=== PATIENT | female | born 1960 | race African-American/Black ===

== ENCOUNTER 2021-02-23 13:03 | Inpatient (IN) | payer MEDICARE, SELFPAY ==
[2021-02-23] MEDS ORDERED: Diltiazem 125 MG/25 ML ONE (13:27)
[2021-02-23 14:05] LABS: Band 8 % (5-11); Hemoglobin 12.5 g/dL (12.0-16.0); Lymphocytes 8 % (21-51); MDiff Complete? YES; Macrocytosis SLIGHT = 6-15 cells (100X) (0-5/hpf); Mean Corpuscular Hemoglobin 34.3 pg (27.0-31.0); Mean Platelet Volume 7.9 fL (7.4-10.4); Monocytes 7 % (0-10); Neutrophil 74 % (42-75); Nucleated RBC 11 % (0); Platelet Count 165 thou/uL (130-400); Platelet Morphology Comment Appears Adequate; RBC Distribution Width 14.5 % (11.5-14.5); Reactive Lymphocytes 3 % (0-10); Red Blood Cell (RBC) Count 3.65 mill/uL (4.20-5.40); White Blood Cell (WBC) Count 14.5 thou/uL (4.8-10.8)
[2021-02-23 14:09] LABS: ALT (SGPT) 1195 U/L (8-55); AST (SGOT) 685 U/L (5-34); Albumin 3.5 g/dL (3.4-4.8); Alkaline Phosphatase 524 U/L (40-110); Anion Gap 21 mmol/L (10-20); BUN (Urea Nitrogen) 91 mg/dL (9.8-20.1); Bilirubin, Total 10.7 mg/dL (0.2-1.2); Calc. Creatinine Clearance 0 mL/min (70-130); Carbon Dioxide 21 mmol/L (23-31); Chloride 100 mmol/L (98-107); Globulin 3.4 g/dL (2.4-3.5); Glucose 178 mg/dL (80-115); Magnesium 2.8 mg/dL (1.6-2.6); Potassium 4.8 mmol/L (3.5-5.1); Protein, Total 6.9 g/dL (5.8-8.1); Sodium 137 mmol/L (136-145)
[2021-02-23 14:33] LABS: CKMB 8.9 ng/mL (0-6.6)
[2021-02-23] MEDS ORDERED: Enoxaparin Sodium 100 MG/ML SYRINGE ONE (15:56)
[2021-02-23] MEDS ORDERED: Digoxin 0.5 MG/2 ML AMP ONE (15:56)
[2021-02-23] MEDS ORDERED: Lorazepam 2 MG/ML VIAL SLOW IVP PRN (18:05)
[2021-02-23] MEDS ORDERED: Ondansetron ODT 4 MG TAB PO PRN ×2 (18:14→19:59)
[2021-02-23] MEDS ORDERED: Diltiazem 125 MG in Sodium Chloride 0.9% 100 ML IVPB SCH (18:15)
[2021-02-23 18:23] LABS: Bacteria/HPF 4+ HPF (None Seen); Bilirubin Negative (Negative); Blood, Urine 1+ (Negative); Clarity Turbid (Clear); Glucose, Urine (Dipstick) Normal (Negative); Ketone, Urine Negative (Negative); Leukocyte 25 Leu/uL (Negative); Nitrite Negative (Negative); Protein, Urine (Dipstick) 30 mg/dL (Neg-Trace); RBC/HPF 0-3 HPF (0-3); Specific Gravity, Urine 1.016 (1.002-1.036)
[2021-02-23 18:40] LABS: Hemoglobin 11.9 g/dL (12.0-16.0); Platelet Count 152 thou/uL (130-400)
[2021-02-23 18:40] LABS: Amphetamine Not Detected (NotDetected); Barbiturates Screen Not Detected (NotDetected); Benzodiazepine Screen Not Detected (NotDetected); Cocaine Metabolite Screen Detected (NotDetected); Methadone Not Detected (NotDetected); Methamphetamine Not Detected (NotDetected); Opiate Screen Not Detected (NotDetected); Oxycodone Screen Not Detected (NotDetected); Phencyclidine (PCP) Not Detected (NotDetected); THC/Cannabinoid Screen Not Detected (NotDetected); Tricyclic Screen Not Detected (NotDetected)
[2021-02-23 18:50] LABS: Hemoglobin A1c 6.5 % (4.0-6.0)
[2021-02-23 18:53] LABS: INR-International Normal Ratio 1.9; PTT 41.3 sec (22.9-36.1); Prothrombin Time 21.7 sec (12.0-14.7)
[2021-02-23 18:59] LABS: Troponin I 0.073 ng/mL (< 0.028)
[2021-02-23 19:00] LABS: Alcohol Less than 10 mg/dL (Less than 10); CK (CPK) 204 U/L (29-168); Cardiac Risk 4.4 (Less than 4.5); Cholesterol 141 mg/dl (< 200 Desired); HDL Cholesterol 32 mg/dL (>60 Neg Risk); LDL Cholesterol, Calculated 93 mg/dL; Triglycerides 79 mg/dL (Less than 150)
[2021-02-23 19:09] LABS: D-Dimer Test Greater than 20.00 *mcg/mL (0.27-0.43)
[2021-02-23 19:11] LABS: Creatinine, Urine 121.23 mg/dL (47-110)
[2021-02-23 19:14] LABS: Syphilis Antibody Nonreactive (Nonreactive); Syphilis Antibody Index 0.16 S/CO (<1.00 Non-Reactive)
[2021-02-23 19:17] LABS: HBCM Index 0.06 S/CO (0-0.79); HBSAg Index 0.39 S/CO (0-0.99); HIV (1/2) Antibody/Antigen Non-Reactive (NonReactive); HIV 1/2 INDEX 0.06 S/CO (<1.00); Hep A IgM AB Non-Reactive (NonReactive); Hep A IgM S/CO 0.52 S/CO (0-0.79); Hep B Surf Ag Non-Reactive S/CO (NonReactive); Hep C IgG Ab Non-Reactive (NonReactive); Hep C Index 0.08 S/CO (0-0.79); Hepatitis B Core IgM Abs Non-Reactive (NonReactive)
[2021-02-23] MEDS: Heparin 10,000 UNITS/ 10 ML VIAL SLOW IVP SCH (21:43)
[2021-02-23] MEDS: Heparin 25,000 units/D5W 500 ML IVPB SCH (21:44)
[2021-02-23 23:09] LABS: Acetaminophen Less than 6.0 mcg/mL (10.0-30.0)
[2021-02-24 04:15] LABS: ALT (SGPT) 987 U/L (8-55); AST (SGOT) 369 U/L (5-34); Albumin 3.4 g/dL (3.4-4.8); Alkaline Phosphatase 502 U/L (40-110); Anion Gap 20 mmol/L (10-20); BUN (Urea Nitrogen) 87 mg/dL (9.8-20.1); Bilirubin, Total 7.9 mg/dL (0.2-1.2); Calc. Creatinine Clearance 22 mL/min (70-130); Calcium 8.8 mg/dL (7.8-10.44); Carbon Dioxide 18 mmol/L (23-31); Chloride 106 mmol/L (98-107); Globulin 3.5 g/dL (2.4-3.5); Glucose 174 mg/dL (80-115); Potassium 4.3 mmol/L (3.5-5.1); Protein, Total 6.9 g/dL (5.8-8.1); Sodium 140 mmol/L (136-145)
[2021-02-24 04:59] LABS: Band 8 % (5-11); Hemoglobin 12.5 g/dL (12.0-16.0); Lymphocytes 9 % (21-51); MDiff Complete? YES; Mean Corpuscular HGB CONC 31.5 g/dL (32.0-36.0); Mean Corpuscular Hemoglobin 34.4 pg (27.0-31.0); Mean Platelet Volume 7.9 fL (7.4-10.4); Monocytes 3 % (0-10); Neutrophil 80 % (42-75); Nucleated RBC 1 % (0); Platelet Count 170 thou/uL (130-400); RBC Distribution Width 14.7 % (11.5-14.5); Red Blood Cell (RBC) Count 3.62 mill/uL (4.20-5.40); White Blood Cell (WBC) Count 15.3 thou/uL (4.8-10.8)
[2021-02-24] MEDS ORDERED: Diltiazem HCl SR 90 mg Capsule PO SCH (09:00)
[2021-02-24] MEDS ORDERED: methylPREDNISolone Sod Succ 40 MG VIAL IVP SCH (09:00)
[2021-02-24] MEDS ORDERED: FLU VACC QS2021-22(6MOS UP)/PF 60 MCG/0.5 ML SYRINGE IM ONE (09:00)
[2021-02-24] MEDS: methylPREDNISolone Sod Succ 40 MG VIAL IVP SCH (10:53)
[2021-02-24] MEDS ORDERED: Amlodipine 5 MG TAB PO SCH (17:00)
[2021-02-25] MEDS: Heparin 25,000 units/D5W 500 ML IVPB SCH (01:03)
[2021-02-25 05:12] LABS: ALT (SGPT) 758 U/L (8-55); AST (SGOT) 207 U/L (5-34); Albumin 3.3 g/dL (3.4-4.8); Alkaline Phosphatase 468 U/L (40-110); Anion Gap 16 mmol/L (10-20); BUN (Urea Nitrogen) 59 mg/dL (9.8-20.1); Bilirubin, Total 5.2 mg/dL (0.2-1.2); Calc. Creatinine Clearance 35 mL/min (70-130); Calcium 8.8 mg/dL (7.8-10.44); Carbon Dioxide 22 mmol/L (23-31); Chloride 103 mmol/L (98-107); Globulin 3.4 g/dL (2.4-3.5); Glucose 296 mg/dL (80-115); Potassium 3.7 mmol/L (3.5-5.1); Protein, Total 6.7 g/dL (5.8-8.1); Sodium 137 mmol/L (136-145)
[2021-02-25] MEDS: Heparin 10,000 UNITS/ 10 ML VIAL SLOW IVP SCH (06:06)
[2021-02-25 06:51] LABS: Band 4 % (5-11); Hemoglobin 12.1 g/dL (12.0-16.0); Lymphocytes 4 % (21-51); MDiff Complete? YES; Macrocytosis SLIGHT = 6-15 cells (100X) (0-5/hpf); Mean Corpuscular HGB CONC 32.6 g/dL (32.0-36.0); Mean Corpuscular Hemoglobin 35.3 pg (27.0-31.0); Mean Platelet Volume 7.5 fL (7.4-10.4); Monocytes 4 % (0-10); Neutrophil 88 % (42-75); Nucleated RBC 3 % (0); Platelet Count 153 thou/uL (130-400); RBC Distribution Width 14.9 % (11.5-14.5); Red Blood Cell (RBC) Count 3.42 mill/uL (4.20-5.40); White Blood Cell (WBC) Count 12.6 thou/uL (4.8-10.8)
[2021-02-25] MEDS ORDERED: Dextrose 50% Abboject 50 ML SYRINGE SLOW IVP PRN (09:13)
[2021-02-25] MEDS: Amlodipine 5 MG TAB PO SCH (09:29)
[2021-02-25] MEDS: methylPREDNISolone Sod Succ 40 MG VIAL IVP SCH (09:29)
[2021-02-25] MEDS ORDERED: Apixaban 5 MG TAB PO SCH ×2 (10:45→11:02)
[2021-02-25] MEDS: cefTRIAXone\\ROCEPHIN 2 GM in Sodium Chloride 0.9% 100 ML IVPB SCH (11:53)
[2021-02-25] MEDS: HumaLOG 300 UNITS/3 ML VIAL SC PRN ×3 (12:28→20:59)
[2021-02-25 12:43] LABS: PTT Greater than 250.0 sec (22.9-36.1)
[2021-02-25 16:35] LABS: INR-International Normal Ratio 2.1; Prothrombin Time 23.5 sec (12.0-14.7)
[2021-02-25 16:36] LABS: PTT 79.4 sec (22.9-36.1)
[2021-02-25 17:24] LABS: SARS-CoV-2 PCR by NAA Not Detected (NotDetected)
[2021-02-25 18:16] LABS: Hemoglobin 11.9 g/dL (12.0-16.0); Platelet Count 173 thou/uL (130-400)
[2021-02-26 05:30] LABS: #Lymphocytes 1.1 thou/uL (1.20-3.40); #Monocytes 0.7 thou/uL (0.11-0.59); #Neutrophils 11.5 thou/uL (1.40-6.50); %Basophils 0.2 % (0.0-1.0); %Eosinophils 0.2 % (0.0-10.0); %Lymphocytes 7.9 % (21.0-51.0); %Monocytes 5.1 % (0.0-10.0); %Neutrophils 86.6 % (42.0-75.0); Hemoglobin 11.5 g/dL (12.0-16.0); MDiff Complete? YES; Macrocytosis SLIGHT = 6-15 cells (100X) (0-5/hpf); Mean Corpuscular Hemoglobin 35.1 pg (27.0-31.0); Mean Platelet Volume 7.3 fL (7.4-10.4); Platelet Count 177 thou/uL (130-400); RBC Distribution Width 15.1 % (11.5-14.5); Red Blood Cell (RBC) Count 3.27 mill/uL (4.20-5.40); Target Cells SLIGHT = 2-5 cells (100X) (0-1/hpf); White Blood Cell (WBC) Count 13.3 thou/uL (4.8-10.8)
[2021-02-26 05:50] LABS: ALT (SGPT) 602 U/L (8-55); AST (SGOT) 150 U/L (5-34); Albumin 3.2 g/dL (3.4-4.8); Alkaline Phosphatase 393 U/L (40-110); Anion Gap 12 mmol/L (10-20); BUN (Urea Nitrogen) 50 mg/dL (9.8-20.1); Bilirubin, Total 3.8 mg/dL (0.2-1.2); Calc. Creatinine Clearance 47 mL/min (70-130); Calcium 8.9 mg/dL (7.8-10.44); Carbon Dioxide 26 mmol/L (23-31); Chloride 105 mmol/L (98-107); Globulin 3.2 g/dL (2.4-3.5); Glucose 252 mg/dL (80-115); Potassium 4.1 mmol/L (3.5-5.1); Protein, Total 6.4 g/dL (5.8-8.1); Sodium 139 mmol/L (136-145)
[2021-02-26] MEDS: HumaLOG 300 UNITS/3 ML VIAL SC PRN ×2 (06:11→10:47)
[2021-02-26] MEDS ORDERED: Metoprolol Tartrate 5 MG/5 ML VIAL IVP SCH (06:15)
[2021-02-26] MEDS ORDERED: Digoxin 0.5 MG/2 ML AMP SLOW IVP SCH ×3 (07:20→20:00)
[2021-02-26] MEDS: Loratadine 10 MG TAB PO SCH (08:31)
[2021-02-26] MEDS: Apixaban 5 MG TAB PO SCH ×2 (08:31→20:49)
[2021-02-26] MEDS: methylPREDNISolone Sod Succ 40 MG VIAL IVP SCH (08:31)
[2021-02-26] MEDS: Amlodipine 5 MG TAB PO SCH (08:31)
[2021-02-26] MEDS: Fluticasone Propionate Nasal Spray 16 gm Bottle NASAL SCH (08:32)
[2021-02-26] MEDS: Lantus 1000 UNITS/10 ML VIAL SC SCH (08:32)
[2021-02-26] MEDS ORDERED: Apixaban 5 MG TAB PO SCH (09:00)
[2021-02-26] MEDS: cefTRIAXone\\ROCEPHIN 2 GM in Sodium Chloride 0.9% 100 ML IVPB SCH (10:40)
[2021-02-26] MEDS ORDERED: Senokot 8.6 MG TAB PO PRN (11:09)
[2021-02-26] MEDS ORDERED: Polyethylene Glycol 3350 17 GM Packet PO SCH (11:30)
[2021-02-26] MEDS ORDERED: Diltiazem 125 MG in Sodium Chloride 0.9% 100 ML IVPB SCH (22:30)
[2021-02-27 05:11] LABS: #Lymphocytes 0.9 thou/uL (1.20-3.40); #Monocytes 0.8 thou/uL (0.11-0.59); %Basophils 0.1 % (0.0-1.0); %Eosinophils 0.1 % (0.0-10.0); %Lymphocytes 7.2 % (21.0-51.0); %Monocytes 6.2 % (0.0-10.0); %Neutrophils 86.5 % (42.0-75.0); Hemoglobin 12.3 g/dL (12.0-16.0); Mean Corpuscular Hemoglobin 35.5 pg (27.0-31.0); Mean Platelet Volume 7.3 fL (7.4-10.4); Platelet Count 187 thou/uL (130-400); RBC Distribution Width 15.1 % (11.5-14.5); Red Blood Cell (RBC) Count 3.45 mill/uL (4.20-5.40); White Blood Cell (WBC) Count 12.7 thou/uL (4.8-10.8)
[2021-02-27 05:27] LABS: ALT (SGPT) 500 U/L (8-55); AST (SGOT) 109 U/L (5-34); Albumin 3.4 g/dL (3.4-4.8); Alkaline Phosphatase 372 U/L (40-110); Anion Gap 12 mmol/L (10-20); BUN (Urea Nitrogen) 36 mg/dL (9.8-20.1); Bilirubin, Total 3.2 mg/dL (0.2-1.2); Calc. Creatinine Clearance 55 mL/min (70-130); Carbon Dioxide 30 mmol/L (23-31); Chloride 101 mmol/L (98-107); Globulin 3.3 g/dL (2.4-3.5); Glucose 273 mg/dL (80-115); Potassium 4.2 mmol/L (3.5-5.1); Protein, Total 6.7 g/dL (5.8-8.1); Sodium 139 mmol/L (136-145)
[2021-02-27] MEDS: HumaLOG 300 UNITS/3 ML VIAL SC PRN ×4 (06:23→20:48)
[2021-02-27] MEDS ORDERED: Polyethylene Glycol 3350 17 GM Packet PO SCH (09:00)
[2021-02-27] MEDS: Fluticasone Propionate Nasal Spray 16 gm Bottle NASAL SCH (09:06)
[2021-02-27] MEDS: methylPREDNISolone Sod Succ 40 MG VIAL IVP SCH (09:06)
[2021-02-27] MEDS: Loratadine 10 MG TAB PO SCH (09:08)
[2021-02-27] MEDS: Amlodipine 5 MG TAB PO SCH (09:08)
[2021-02-27] MEDS: Apixaban 5 MG TAB PO SCH ×2 (09:08→20:09)
[2021-02-27] MEDS: Thiamine 100 MG TAB PO SCH (09:08)
[2021-02-27] MEDS: Lantus 1000 UNITS/10 ML VIAL SC SCH (09:13)
[2021-02-27] MEDS ORDERED: Lantus 1000 UNITS/10 ML VIAL SC SCH (09:45)
[2021-02-27] MEDS ORDERED: Carvedilol 6.25 MG TAB PO SCH (10:00)
[2021-02-27] MEDS: cefTRIAXone\\ROCEPHIN 2 GM in Sodium Chloride 0.9% 100 ML IVPB SCH (10:39)
[2021-02-27] MEDS: Carvedilol 6.25 MG TAB PO SCH (16:42)
[2021-02-27] MEDS: Polyethylene Glycol 3350 17 GM Packet PO SCH (20:15)
[2021-02-28] MEDS: Diltiazem 125 MG in Sodium Chloride 0.9% 100 ML IVPB SCH ×2 (01:40→21:08)
[2021-02-28 05:19] LABS: #Lymphocytes 0.9 thou/uL (1.20-3.40); #Monocytes 0.8 thou/uL (0.11-0.59); #Neutrophils 11.9 thou/uL (1.40-6.50); %Basophils 0.1 % (0.0-1.0); %Eosinophils 0.1 % (0.0-10.0); %Lymphocytes 6.8 % (21.0-51.0); %Monocytes 5.8 % (0.0-10.0); %Neutrophils 87.3 % (42.0-75.0); Hemoglobin 12.6 g/dL (12.0-16.0); Mean Corpuscular HGB CONC 32.2 g/dL (32.0-36.0); Mean Corpuscular Hemoglobin 35.5 pg (27.0-31.0); Mean Platelet Volume 7.8 fL (7.4-10.4); Platelet Count 186 thou/uL (130-400); RBC Distribution Width 14.5 % (11.5-14.5); Red Blood Cell (RBC) Count 3.55 mill/uL (4.20-5.40); White Blood Cell (WBC) Count 13.7 thou/uL (4.8-10.8)
[2021-02-28] MEDS: HumaLOG 300 UNITS/3 ML VIAL SC PRN ×4 (06:12→21:07)
[2021-02-28] MEDS: hydrALAZINE 20 MG/ML VIAL SLOW IVP PRN ×2 (06:53→20:08)
[2021-02-28] MEDS ORDERED: Lantus 1000 UNITS/10 ML VIAL SC SCH (09:00)
[2021-02-28] MEDS: Loratadine 10 MG TAB PO SCH (09:00)
[2021-02-28] MEDS: Apixaban 5 MG TAB PO SCH ×2 (09:00→20:07)
[2021-02-28] MEDS: Thiamine 100 MG TAB PO SCH (09:00)
[2021-02-28] MEDS: Amlodipine 5 MG TAB PO SCH (09:00)
[2021-02-28] MEDS: Fluticasone Propionate Nasal Spray 16 gm Bottle NASAL SCH ×2 (09:01→09:28)
[2021-02-28] MEDS: Polyethylene Glycol 3350 17 GM Packet PO SCH ×2 (09:04→23:20)
[2021-02-28] MEDS: methylPREDNISolone Sod Succ 40 MG VIAL IVP SCH (09:04)
[2021-02-28] MEDS ORDERED: Carvedilol 6.25 MG TAB PO SCH ×3 (09:09→17:00)
[2021-02-28] MEDS: Lantus 1000 UNITS/10 ML VIAL SC SCH (09:18)
[2021-02-28] MEDS: Carvedilol 6.25 MG TAB PO SCH (09:32)
[2021-02-28] MEDS ORDERED: Carvedilol 25 MG TAB PO SCH (10:00)
[2021-02-28 15:21] LABS: ALT (SGPT) 354 U/L (8-55); AST (SGOT) 64 U/L (5-34); Albumin 3.2 g/dL (3.4-4.8); Alkaline Phosphatase 321 U/L (40-110); Anion Gap 11 mmol/L (10-20); BUN (Urea Nitrogen) 30 mg/dL (9.8-20.1); Bilirubin, Total 2.2 mg/dL (0.2-1.2); Calc. Creatinine Clearance 66 mL/min (70-130); Carbon Dioxide 31 mmol/L (23-31); Chloride 99 mmol/L (98-107); Globulin 3.3 g/dL (2.4-3.5); Glucose 410 mg/dL (80-115); Potassium 4.5 mmol/L (3.5-5.1); Protein, Total 6.5 g/dL (5.8-8.1); Sodium 136 mmol/L (136-145)
[2021-02-28] MEDS: Lidocaine 5% Patch TD SCH (17:10)
[2021-02-28] MEDS: Metoprolol Tartrate 50 MG TAB PO SCH (20:07)
[2021-02-28] MEDS ORDERED: Transdermal Patch Removal TOP SCH (21:00)
[2021-02-28] MEDS ORDERED: Lidocaine 5% Patch TD SCH (21:00)
[2021-03-01 05:07] LABS: #Lymphocytes 0.9 thou/uL (1.20-3.40); #Monocytes 0.6 thou/uL (0.11-0.59); #Neutrophils 11.6 thou/uL (1.40-6.50); %Eosinophils 0.1 % (0.0-10.0); %Lymphocytes 6.6 % (21.0-51.0); %Monocytes 4.6 % (0.0-10.0); %Neutrophils 88.7 % (42.0-75.0); Hemoglobin 13.1 g/dL (12.0-16.0); Mean Corpuscular HGB CONC 31.5 g/dL (32.0-36.0); Mean Corpuscular Hemoglobin 34.9 pg (27.0-31.0); Mean Platelet Volume 7.6 fL (7.4-10.4); Platelet Count 215 thou/uL (130-400); RBC Distribution Width 14.5 % (11.5-14.5); Red Blood Cell (RBC) Count 3.75 mill/uL (4.20-5.40); White Blood Cell (WBC) Count 13.1 thou/uL (4.8-10.8)
[2021-03-01 05:44] LABS: ALT (SGPT) 296 U/L (8-55); AST (SGOT) 56 U/L (5-34); Alkaline Phosphatase 285 U/L (40-110); Anion Gap 13 mmol/L (10-20); BUN (Urea Nitrogen) 29 mg/dL (9.8-20.1); Calc. Creatinine Clearance 72 mL/min (70-130); Calcium 9.1 mg/dL (7.8-10.44); Carbon Dioxide 29 mmol/L (23-31); Chloride 98 mmol/L (98-107); Globulin 3.7 g/dL (2.4-3.5); Glucose 316 mg/dL (80-115); Potassium 4.7 mmol/L (3.5-5.1); Protein, Total 6.7 g/dL (5.8-8.1); Sodium 135 mmol/L (136-145)
[2021-03-01] MEDS: HumaLOG 300 UNITS/3 ML VIAL SC PRN ×4 (06:14→21:52)
[2021-03-01] MEDS: Transdermal Patch Removal TOP SCH (06:28)
[2021-03-01] MEDS ORDERED: hydrALAZINE 20 MG/ML VIAL SLOW IVP PRN (06:48)
[2021-03-01] MEDS ORDERED: methylPREDNISolone Sod Succ 40 MG VIAL IVP SCH (09:00)
[2021-03-01] MEDS ORDERED: Lidocaine 5% Patch TD SCH (09:00)
[2021-03-01] MEDS ORDERED: Lantus 1000 UNITS/10 ML VIAL SC SCH (09:00)
[2021-03-01] MEDS: Apixaban 5 MG TAB PO SCH ×2 (09:24→20:32)
[2021-03-01] MEDS: Thiamine 100 MG TAB PO SCH (09:24)
[2021-03-01] MEDS: Amlodipine 5 MG TAB PO SCH (09:25)
[2021-03-01] MEDS: Polyethylene Glycol 3350 17 GM Packet PO SCH ×3 (09:27→21:20)
[2021-03-01] MEDS: Metoprolol Tartrate 50 MG TAB PO SCH (09:27)
[2021-03-01] MEDS: Loratadine 10 MG TAB PO SCH (09:27)
[2021-03-01] MEDS: Fluticasone Propionate Nasal Spray 16 gm Bottle NASAL SCH (09:34)
[2021-03-01] MEDS: Lantus 1000 UNITS/10 ML VIAL SC SCH (09:41)
[2021-03-01] MEDS: Lidocaine 5% Patch TD SCH (17:04)
[2021-03-01] MEDS: Metoprolol Tartrate 100 MG TAB PO SCH (20:32)
[2021-03-01] MEDS ORDERED: Metoprolol Tartrate 50 MG TAB PO SCH (21:00)
[2021-03-01] MEDS ORDERED: Melatonin 3 MG TAB PO PRN (21:23)
[2021-03-01] MEDS: Diltiazem 125 MG in Sodium Chloride 0.9% 100 ML IVPB SCH (23:03)
[2021-03-02] MEDS: Transdermal Patch Removal TOP SCH (05:17)
[2021-03-02 05:20] LABS: #Eosinphils 0.1 thou/uL (0.0-0.7); #Lymphocytes 1.1 thou/uL (1.20-3.40); #Monocytes 0.8 thou/uL (0.11-0.59); #Neutrophils 10.7 thou/uL (1.40-6.50); %Eosinophils 0.8 % (0.0-10.0); %Lymphocytes 8.7 % (21.0-51.0); %Monocytes 6.2 % (0.0-10.0); %Neutrophils 84.3 % (42.0-75.0); Mean Corpuscular HGB CONC 31.6 g/dL (32.0-36.0); Mean Corpuscular Hemoglobin 35.1 pg (27.0-31.0); Mean Platelet Volume 7.5 fL (7.4-10.4); Platelet Count 232 thou/uL (130-400); RBC Distribution Width 14.4 % (11.5-14.5); White Blood Cell (WBC) Count 12.6 thou/uL (4.8-10.8)
[2021-03-02 05:41] LABS: ALT (SGPT) 219 U/L (8-55); AST (SGOT) 32 U/L (5-34); Alkaline Phosphatase 251 U/L (40-110); Anion Gap 10 mmol/L (10-20); BUN (Urea Nitrogen) 33 mg/dL (9.8-20.1); Bilirubin, Total 1.7 mg/dL (0.2-1.2); Calc. Creatinine Clearance 64 mL/min (70-130); Calcium 8.7 mg/dL (7.8-10.44); Carbon Dioxide 30 mmol/L (23-31); Chloride 101 mmol/L (98-107); Glucose 270 mg/dL (80-115); Potassium 3.6 mmol/L (3.5-5.1); Sodium 137 mmol/L (136-145)
[2021-03-02] MEDS: HumaLOG 300 UNITS/3 ML VIAL SC PRN ×4 (05:57→21:26)
[2021-03-02] MEDS ORDERED: Diltiazem 125 MG in Sodium Chloride 0.9% 100 ML IVPB SCH (07:45)
[2021-03-02] MEDS ORDERED: Lantus 1000 UNITS/10 ML VIAL SC SCH ×2 (09:00)
[2021-03-02] MEDS: Metoprolol Tartrate 100 MG TAB PO SCH (09:00)
[2021-03-02] MEDS: Thiamine 100 MG TAB PO SCH (09:00)
[2021-03-02] MEDS: Loratadine 10 MG TAB PO SCH (09:00)
[2021-03-02] MEDS: Amlodipine 5 MG TAB PO SCH (09:00)
[2021-03-02] MEDS: Polyethylene Glycol 3350 17 GM Packet PO SCH ×2 (09:00→21:13)
[2021-03-02] MEDS: Apixaban 5 MG TAB PO SCH ×2 (09:00→21:19)
[2021-03-02] MEDS: Fluticasone Propionate Nasal Spray 16 gm Bottle NASAL SCH (09:01)
[2021-03-02 17:08] LABS: INR-International Normal Ratio 1.5; Prothrombin Time 18.1 sec (12.0-14.7)
[2021-03-02] MEDS: Lidocaine 5% Patch TD SCH (17:28)
[2021-03-02] MEDS: Melatonin 3 MG TAB PO SCH (21:19)
[2021-03-03 04:58] LABS: #Eosinphils 0.1 thou/uL (0.0-0.7); #Lymphocytes 1.4 thou/uL (1.20-3.40); #Monocytes 0.8 thou/uL (0.11-0.59); #Neutrophils 11.8 thou/uL (1.40-6.50); %Basophils 0.3 % (0.0-1.0); %Eosinophils 0.9 % (0.0-10.0); %Lymphocytes 9.5 % (21.0-51.0); %Monocytes 5.8 % (0.0-10.0); %Neutrophils 83.5 % (42.0-75.0); Hemoglobin 13.6 g/dL (12.0-16.0); Mean Corpuscular HGB CONC 31.4 g/dL (32.0-36.0); Mean Corpuscular Hemoglobin 35.1 pg (27.0-31.0); Mean Platelet Volume 7.6 fL (7.4-10.4); Platelet Count 237 thou/uL (130-400); RBC Distribution Width 14.1 % (11.5-14.5); Red Blood Cell (RBC) Count 3.87 mill/uL (4.20-5.40); White Blood Cell (WBC) Count 14.1 thou/uL (4.8-10.8)
[2021-03-03 05:28] LABS: ALT (SGPT) 155 U/L (8-55); AST (SGOT) 28 U/L (5-34); Albumin 3.1 g/dL (3.4-4.8); Alkaline Phosphatase 246 U/L (40-110); Anion Gap 11 mmol/L (10-20); BUN (Urea Nitrogen) 27 mg/dL (9.8-20.1); Bilirubin, Total 1.7 mg/dL (0.2-1.2); Calc. Creatinine Clearance 72 mL/min (70-130); Calcium 8.8 mg/dL (7.8-10.44); Carbon Dioxide 29 mmol/L (23-31); Chloride 102 mmol/L (98-107); Globulin 3.1 g/dL (2.4-3.5); Glucose 194 mg/dL (80-115); Potassium 3.6 mmol/L (3.5-5.1); Protein, Total 6.2 g/dL (5.8-8.1); Sodium 138 mmol/L (136-145)
[2021-03-03] MEDS: Transdermal Patch Removal TOP SCH (06:16)
[2021-03-03] MEDS: HumaLOG 300 UNITS/3 ML VIAL SC PRN ×4 (06:16→21:49)
[2021-03-03] MEDS: Lantus 1000 UNITS/10 ML VIAL SC SCH (10:28)
[2021-03-03] MEDS: Apixaban 5 MG TAB PO SCH ×2 (10:30→21:50)
[2021-03-03] MEDS: Loratadine 10 MG TAB PO SCH (10:31)
[2021-03-03] MEDS: Thiamine 100 MG TAB PO SCH (10:31)
[2021-03-03] MEDS: Polyethylene Glycol 3350 17 GM Packet PO SCH ×2 (10:32→21:51)
[2021-03-03] MEDS: Fluticasone Propionate Nasal Spray 16 gm Bottle NASAL SCH (10:33)
[2021-03-03] MEDS: Amlodipine 10 MG TAB PO SCH (10:35)
[2021-03-03] MEDS: Lidocaine 5% Patch TD SCH (16:58)
[2021-03-03] MEDS ORDERED: Diltiazem HCl SR 60 mg Capsule PO SCH (17:15)
[2021-03-03] MEDS: Amlodipine 5 MG TAB PO SCH (19:19)
[2021-03-03] MEDS: Melatonin 3 MG TAB PO SCH (21:50)
[2021-03-04 04:36] LABS: #Basophils 0.1 thou/uL (0.0-0.2); #Eosinphils 0.2 thou/uL (0.0-0.7); #Lymphocytes 1.9 thou/uL (1.20-3.40); #Monocytes 0.8 thou/uL (0.11-0.59); #Neutrophils 10.3 thou/uL (1.40-6.50); %Basophils 0.4 % (0.0-1.0); %Eosinophils 1.3 % (0.0-10.0); %Lymphocytes 14.5 % (21.0-51.0); %Monocytes 6.3 % (0.0-10.0); %Neutrophils 77.6 % (42.0-75.0); Hemoglobin 12.7 g/dL (12.0-16.0); Mean Corpuscular HGB CONC 31.1 g/dL (32.0-36.0); Mean Corpuscular Hemoglobin 34.5 pg (27.0-31.0); Mean Platelet Volume 7.3 fL (7.4-10.4); Platelet Count 247 thou/uL (130-400); RBC Distribution Width 13.8 % (11.5-14.5); Red Blood Cell (RBC) Count 3.69 mill/uL (4.20-5.40); White Blood Cell (WBC) Count 13.3 thou/uL (4.8-10.8)
[2021-03-04 04:59] LABS: ALT (SGPT) 130 U/L (8-55); AST (SGOT) 32 U/L (5-34); Albumin 2.9 g/dL (3.4-4.8); Alkaline Phosphatase 216 U/L (40-110); Anion Gap 8 mmol/L (10-20); BUN (Urea Nitrogen) 20 mg/dL (9.8-20.1); Bilirubin, Total 1.5 mg/dL (0.2-1.2); Calc. Creatinine Clearance 87 mL/min (70-130); Calcium 8.5 mg/dL (7.8-10.44); Carbon Dioxide 31 mmol/L (23-31); Chloride 102 mmol/L (98-107); Glucose 126 mg/dL (80-115); Potassium 3.7 mmol/L (3.5-5.1); Protein, Total 5.9 g/dL (5.8-8.1); Sodium 137 mmol/L (136-145)
[2021-03-04] MEDS: Transdermal Patch Removal TOP SCH (05:33)
[2021-03-04] MEDS ORDERED: Diltiazem HCl CD 300 mg Capsule PO SCH (09:00)
[2021-03-04] MEDS: Polyethylene Glycol 3350 17 GM Packet PO SCH ×2 (09:53→21:10)
[2021-03-04] MEDS: Amlodipine 10 MG TAB PO SCH (09:54)
[2021-03-04] MEDS: Apixaban 5 MG TAB PO SCH (09:54)
[2021-03-04] MEDS: Thiamine 100 MG TAB PO SCH (09:54)
[2021-03-04] MEDS: Fluticasone Propionate Nasal Spray 16 gm Bottle NASAL SCH (09:55)
[2021-03-04] MEDS: Loratadine 10 MG TAB PO SCH (09:55)
[2021-03-04] MEDS: Lantus 1000 UNITS/10 ML VIAL SC SCH (09:58)
[2021-03-04] MEDS: Lidocaine 5% Patch TD SCH (16:58)
[2021-03-04] MEDS ORDERED: Carvedilol 6.25 MG TAB PO SCH ×3 (17:00→21:15)
[2021-03-04] MEDS: Melatonin 3 MG TAB PO SCH (21:09)
[2021-03-04] MEDS: HumaLOG 300 UNITS/3 ML VIAL SC PRN (21:10)
[2021-03-05 04:46] LABS: #Basophils 0.1 thou/uL (0.0-0.2); #Eosinphils 0.1 thou/uL (0.0-0.7); #Lymphocytes 1.3 thou/uL (1.20-3.40); #Monocytes 0.9 thou/uL (0.11-0.59); #Neutrophils 9.7 thou/uL (1.40-6.50); %Basophils 0.7 % (0.0-1.0); %Eosinophils 1.2 % (0.0-10.0); %Lymphocytes 10.7 % (21.0-51.0); %Monocytes 7.5 % (0.0-10.0); Hemoglobin 12.2 g/dL (12.0-16.0); Mean Corpuscular HGB CONC 31.3 g/dL (32.0-36.0); Mean Corpuscular Hemoglobin 34.4 pg (27.0-31.0); Mean Platelet Volume 7.2 fL (7.4-10.4); Platelet Count 262 thou/uL (130-400); Red Blood Cell (RBC) Count 3.54 mill/uL (4.20-5.40); White Blood Cell (WBC) Count 12.2 thou/uL (4.8-10.8)
[2021-03-05 05:03] LABS: ALT (SGPT) 106 U/L (8-55); AST (SGOT) 21 U/L (5-34); Alkaline Phosphatase 210 U/L (40-110); Anion Gap 12 mmol/L (10-20); BUN (Urea Nitrogen) 29 mg/dL (9.8-20.1); Bilirubin, Total 1.3 mg/dL (0.2-1.2); Calc. Creatinine Clearance 56 mL/min (70-130); Calcium 8.6 mg/dL (7.8-10.44); Carbon Dioxide 27 mmol/L (23-31); Chloride 103 mmol/L (98-107); Glucose 201 mg/dL (80-115); Potassium 3.9 mmol/L (3.5-5.1); Sodium 138 mmol/L (136-145)
[2021-03-05] MEDS: Transdermal Patch Removal TOP SCH (05:39)
[2021-03-05] MEDS: HumaLOG 300 UNITS/3 ML VIAL SC PRN ×3 (05:43→16:59)
[2021-03-05] MEDS: Loratadine 10 MG TAB PO SCH (08:39)
[2021-03-05] MEDS: Lantus 1000 UNITS/10 ML VIAL SC SCH (08:39)
[2021-03-05] MEDS: Amlodipine 10 MG TAB PO SCH (08:39)
[2021-03-05] MEDS: Carvedilol 6.25 MG TAB PO SCH ×2 (08:39→16:59)
[2021-03-05] MEDS: Thiamine 100 MG TAB PO SCH (08:39)
[2021-03-05] MEDS: Fluticasone Propionate Nasal Spray 16 gm Bottle NASAL SCH (08:40)
[2021-03-05] MEDS: Polyethylene Glycol 3350 17 GM Packet PO SCH (08:43)
[2021-03-05] MEDS ORDERED: Diltiazem HCl CD 300 mg Capsule PO SCH (09:00)
[2021-03-05] MEDS ORDERED: Apixaban 5 MG TAB PO SCH (09:00)
[2021-03-05 12:19] LABS: SARS-CoV-2 PCR by NAA Not Detected (NotDetected)
[2021-03-05 14:33] VITALS: BMI 34.2
[2021-03-05 15:39] VITALS: TEMP 98.3
[2021-03-05] MEDS: Lidocaine 5% Patch TD SCH (16:59)
[2021-03-05 17:39] VITALS: BP 136/64
[2021-03-06 12:40] LABS: ANA Symphony (Qualitative) POSITIVE (Negative); ANA Symphony (Quantitative) 9.4 Ratio (< 0.7 Negative); CENP IgG Antibody Less than 0.4 EliAU/mL (<7 Negative); Jo-1 IgG Antibody Less than 0.3 EliAU/mL (<7 Negative); RNP70 IgG Antibody Less than 0.3 EliAU/mL (<7 Negative); Scleroderma-70 IgG Antibody 1.1 EliAU/mL (<7 Negative); Smith D IgG Antibody 2.6 EliAU/mL (<7 Negative); dsDNA IgG Antibody 1.2 IU/mL (<10 Negative)
[2021-03-06 12:41] LABS: SSB/La IgG Antibody Less than 0.3 EliAU/mL (<7 Negative)
== END 2021-03-05 18:40 | disposition home or self-care (01) | DRG 441 ==
LOC: ERS 13:03 → ERHOLD 16:14 → IMCU/EMU 20:10 → 2NO 02-24 17:15
PROVIDERS: ADMIT Student in an Organized Health Care Education/Training Program; ATTEND Student in an Organized Health Care Education/Training Program
DX: K72.00 Acute and subacute hepatic failure without coma (principal); Z20.822 Contact with and (suspected) exposure to COVID-19; N17.0 Acute kidney failure with tubular necrosis; I21.4 Non-ST elevation (NSTEMI) myocardial infarction; J96.01 Acute respiratory failure with hypoxia; I26.99 Other pulmonary embolism without acute cor pulmonale; I48.19 Other persistent atrial fibrillation; I82.441 Acute embolism and thrombosis of right tibial vein; I50.30 Unspecified diastolic (congestive) heart failure; E78.5 Hyperlipidemia, unspecified; F32.A Depression, unspecified; F17.210 Nicotine dependence, cigarettes, uncomplicated; H54.40 Blindness, one eye, unspecified eye; M21.379 Foot drop, unspecified foot; K70.10 Alcoholic hepatitis without ascites; F14.10 Cocaine abuse, uncomplicated; D64.9 Anemia, unspecified; I11.0 Hypertensive heart disease with heart failure; R74.01 Elevation of levels of liver transaminase levels; I08.1 Rheumatic disorders of both mitral and tricuspid valves; E11.65 Type 2 diabetes mellitus with hyperglycemia; K76.1 Chronic passive congestion of liver; F10.10 Alcohol abuse, uncomplicated; E66.01 Morbid (severe) obesity due to excess calories; R32 Unspecified urinary incontinence; K59.00 Constipation, unspecified; Z68.34 Body mass index [BMI] 34.0-34.9, adult; Z28.21 Immunization not carried out because of patient refusal; Z90.89 Acquired absence of other organs
CPT/HCPCS: 36415; 36416; 71045; 74176; 76705; 80053; 80061; 80074; 80143; 80306; 80307; 81003; 81015; 82248; 82550; 82553; 82570; 82607; 82746; 83036; 83516; 83605; 83690; 83735; 83880; 84300; 84443; 84484; 85025; 85379; 85610; 85730; 86038; 86225; 86235; 86780; 87040; 87086; 87389; 93005; 93306; 93970; 96365; 96366; 96372; 96375; 96376; J0360; J0696; J1160; J1644; J1650; J1815; J2920; J3411; J3490; U0003; U0005

== ENCOUNTER 2021-03-12 07:52 | Inpatient (IN) | payer MEDICARE ==
[2021-03-12 08:41] LABS: Hemoglobin 11.3 g/dL (12.0-16.0); Mean Corpuscular HGB CONC 30.2 g/dL (32.0-36.0); Mean Corpuscular Hemoglobin 33.2 pg (27.0-31.0); Mean Platelet Volume 8.1 fL (7.4-10.4); Platelet Count 229 thou/uL (130-400); RBC Distribution Width 13.6 % (11.5-14.5); White Blood Cell (WBC) Count 8.5 thou/uL (4.8-10.8)
[2021-03-12 08:42] LABS: #Eosinphils 0.1 thou/uL (0.0-0.7); #Lymphocytes 1.6 thou/uL (1.20-3.40); #Monocytes 0.6 thou/uL (0.11-0.59); #Neutrophils 6.2 thou/uL (1.40-6.50); %Basophils 0.5 % (0.0-1.0); %Eosinophils 1.4 % (0.0-10.0); %Lymphocytes 18.2 % (21.0-51.0); %Monocytes 7.3 % (0.0-10.0); %Neutrophils 72.6 % (42.0-75.0)
[2021-03-12 09:00] LABS: ALT (SGPT) 46 U/L (8-55); AST (SGOT) 20 U/L (5-34); Albumin 3.4 g/dL (3.4-4.8); Alkaline Phosphatase 261 U/L (40-110); Anion Gap 14 mmol/L (10-20); BUN (Urea Nitrogen) 27 mg/dL (9.8-20.1); Bilirubin, Total 1.3 mg/dL (0.2-1.2); Calc. Creatinine Clearance 0 mL/min (70-130); Calcium 8.7 mg/dL (7.8-10.44); Carbon Dioxide 25 mmol/L (23-31); Chloride 105 mmol/L (98-107); Globulin 2.7 g/dL (2.4-3.5); Glucose 288 mg/dL (80-115); Potassium 4.7 mmol/L (3.5-5.1); Protein, Total 6.1 g/dL (5.8-8.1); Sodium 139 mmol/L (136-145)
[2021-03-12] MEDS ORDERED: Diltiazem 125 MG/25 ML ONE (09:09)
[2021-03-12 09:13] LABS: Acetaminophen Less than 6.0 mcg/mL (10.0-30.0); Alcohol Less than 10 mg/dL (Less than 10); Salicylate Less than 8.0 mg/dL (15.0-30.0)
[2021-03-12 09:28] LABS: MDiff Complete? YES; Macrocytosis SLIGHT = 6-15 cells (100X) (0-5/hpf); Polychromasia SLIGHT = 2-3 cells (100X) (0-2/hpf)
[2021-03-12] MEDS ORDERED: Metoprolol Tartrate 5 MG/5 ML VIAL ONE (09:47)
[2021-03-12 12:05] LABS: Troponin I 0.022 ng/mL (< 0.028)
[2021-03-12] MEDS ORDERED: Acetaminophen 325 MG TAB PO PRN (14:08)
[2021-03-12 14:48] LABS: Troponin I 0.029 ng/mL (< 0.028)
[2021-03-12] MEDS ORDERED: Furosemide 20 MG/2 ML VIAL SLOW IVP SCH (15:00)
[2021-03-12 15:21] LABS: Magnesium 2.2 mg/dL (1.6-2.6); Phosphorus 3.6 mg/dL (2.3-4.7)
[2021-03-12 15:41] LABS: Bilirubin Negative (Negative); Blood, Urine Negative (Negative); Clarity Clear (Clear); Glucose, Urine (Dipstick) 30 mg/dL (Negative); Ketone, Urine Negative (Negative); Leukocyte Negative Leu/uL (Negative); Nitrite Negative (Negative); Protein, Urine (Dipstick) 70 mg/dL (Neg-Trace); RBC/HPF 0-3 HPF (0-3); Specific Gravity, Urine 1.023 (1.002-1.036); Squamous Epithelial 0-3 HPF (0-3); Urobilinogen 6 mg/dL (Less than 2); WBC/HPF 0-3 HPF (0-3)
[2021-03-12 15:42] LABS: Bacteria/HPF Rare-Few HPF (None Seen)
[2021-03-12 15:47] LABS: Amphetamine Not Detected (NotDetected); Barbiturates Screen Not Detected (NotDetected); Benzodiazepine Screen Not Detected (NotDetected); Cocaine Metabolite Screen Detected (NotDetected); Methadone Not Detected (NotDetected); Methamphetamine Not Detected (NotDetected); Opiate Screen Not Detected (NotDetected); Oxycodone Screen Not Detected (NotDetected); Phencyclidine (PCP) Not Detected (NotDetected); THC/Cannabinoid Screen Not Detected (NotDetected); Tricyclic Screen Not Detected (NotDetected)
[2021-03-12] MEDS ORDERED: Carvedilol 6.25 MG TAB PO SCH (17:00)
[2021-03-12 18:21] VITALS: BMI 34.0
[2021-03-12] MEDS: Diltiazem 125 MG in Sodium Chloride 0.9% 100 ML IVPB SCH (19:09)
[2021-03-12] MEDS: Apixaban 5 MG TAB PO SCH (20:19)
[2021-03-12] MEDS: Melatonin 3 MG TAB PO SCH (20:19)
[2021-03-12] MEDS: Polyethylene Glycol 3350 17 GM Packet PO SCH (20:23)
[2021-03-13] MEDS: Diltiazem 125 MG in Sodium Chloride 0.9% 100 ML IVPB SCH ×2 (01:48→10:37)
[2021-03-13 04:48] LABS: #Basophils 0.1 thou/uL (0.0-0.2); #Eosinphils 0.2 thou/uL (0.0-0.7); #Lymphocytes 1.8 thou/uL (1.20-3.40); #Monocytes 0.5 thou/uL (0.11-0.59); #Neutrophils 4.8 thou/uL (1.40-6.50); %Basophils 1.3 % (0.0-1.0); %Eosinophils 2.1 % (0.0-10.0); %Lymphocytes 24.4 % (21.0-51.0); %Neutrophils 65.2 % (42.0-75.0); Hemoglobin 11.1 g/dL (12.0-16.0); Mean Corpuscular HGB CONC 30.3 g/dL (32.0-36.0); Platelet Count 197 thou/uL (130-400); RBC Distribution Width 13.8 % (11.5-14.5); Red Blood Cell (RBC) Count 3.37 mill/uL (4.20-5.40); White Blood Cell (WBC) Count 7.3 thou/uL (4.8-10.8)
[2021-03-13 05:17] LABS: ALT (SGPT) 40 U/L (8-55); AST (SGOT) 16 U/L (5-34); Albumin 3.3 g/dL (3.4-4.8); Alkaline Phosphatase 231 U/L (40-110); Anion Gap 12 mmol/L (10-20); BUN (Urea Nitrogen) 27 mg/dL (9.8-20.1); Bilirubin, Total 1.4 mg/dL (0.2-1.2); Calc. Creatinine Clearance 48 mL/min (70-130); Carbon Dioxide 24 mmol/L (23-31); Chloride 106 mmol/L (98-107); Glucose 213 mg/dL (80-115); Potassium 4.3 mmol/L (3.5-5.1); Protein, Total 6.3 g/dL (5.8-8.1); Sodium 138 mmol/L (136-145)
[2021-03-13] MEDS ORDERED: Carvedilol 6.25 MG TAB PO SCH (07:15)
[2021-03-13 08:01] LABS: SARS-CoV-2 PCR by NAA Not Detected (NotDetected)
[2021-03-13] MEDS: Loratadine 10 MG TAB PO SCH (08:43)
[2021-03-13] MEDS: Apixaban 5 MG TAB PO SCH ×2 (08:43→20:31)
[2021-03-13] MEDS: Thiamine 100 MG TAB PO SCH (08:43)
[2021-03-13] MEDS: Polyethylene Glycol 3350 17 GM Packet PO SCH ×2 (08:43→20:31)
[2021-03-13] MEDS ORDERED: FLU VACC QS2021-22(6MOS UP)/PF 60 MCG/0.5 ML SYRINGE IM ONE (09:00)
[2021-03-13] MEDS ORDERED: Amlodipine 10 MG TAB PO SCH (09:00)
[2021-03-13] MEDS: Fluticasone Propionate Nasal Spray 16 gm Bottle NASAL SCH (10:37)
[2021-03-13] MEDS ORDERED: Diltiazem 125 MG in Sodium Chloride 0.9% 100 ML IVPB SCH (12:34)
[2021-03-13] MEDS ORDERED: Diltiazem HCl CD 300 mg Capsule PO SCH (14:00)
[2021-03-13] MEDS: Carvedilol 6.25 MG TAB PO SCH (17:27)
[2021-03-13] MEDS: Melatonin 3 MG TAB PO SCH (20:31)
[2021-03-14 05:31] LABS: Anion Gap 14 mmol/L (10-20); BUN (Urea Nitrogen) 31 mg/dL (9.8-20.1); Calc. Creatinine Clearance 36 mL/min (70-130); Calcium 9.1 mg/dL (7.8-10.44); Carbon Dioxide 24 mmol/L (23-31); Chloride 104 mmol/L (98-107); Glucose 263 mg/dL (80-115); Potassium 4.5 mmol/L (3.5-5.1); Sodium 137 mmol/L (136-145)
[2021-03-14] MEDS: Carvedilol 6.25 MG TAB PO SCH (08:53)
[2021-03-14] MEDS: Thiamine 100 MG TAB PO SCH (08:58)
[2021-03-14] MEDS: Fluticasone Propionate Nasal Spray 16 gm Bottle NASAL SCH (08:58)
[2021-03-14] MEDS: Loratadine 10 MG TAB PO SCH (08:58)
[2021-03-14] MEDS: Apixaban 5 MG TAB PO SCH ×2 (08:58→22:58)
[2021-03-14] MEDS: Polyethylene Glycol 3350 17 GM Packet PO SCH ×2 (08:59→22:57)
[2021-03-14] MEDS ORDERED: Diltiazem HCl CD 300 mg Capsule PO SCH (09:00)
[2021-03-14] MEDS ORDERED: Furosemide 20 MG/2 ML VIAL SLOW IVP SCH (09:00)
[2021-03-14] MEDS ORDERED: Carvedilol 25 MG TAB PO SCH ×4 (14:00→22:45)
[2021-03-14] MEDS ORDERED: Lactated Ringer's 500 ML IV SCH (14:00)
[2021-03-14] MEDS ORDERED: Carvedilol 6.25 MG TAB PO SCH (21:00)
[2021-03-14] MEDS: Melatonin 3 MG TAB PO SCH (22:58)
[2021-03-15 05:59] LABS: Anion Gap 14 mmol/L (10-20); BUN (Urea Nitrogen) 31 mg/dL (9.8-20.1); Calc. Creatinine Clearance 33 mL/min (70-130); Calcium 9.1 mg/dL (7.8-10.44); Carbon Dioxide 26 mmol/L (23-31); Chloride 105 mmol/L (98-107); Glucose 255 mg/dL (80-115); Potassium 4.6 mmol/L (3.5-5.1); Sodium 140 mmol/L (136-145)
[2021-03-15] MEDS ORDERED: Dextrose 5% in Water 1,000 ML IV PRN (06:34)
[2021-03-15] MEDS ORDERED: Dextrose 50% Abboject 50 ML SYRINGE SLOW IVP PRN (06:34)
[2021-03-15] MEDS ORDERED: Carvedilol 25 MG TAB PO SCH ×3 (08:00)
[2021-03-15] MEDS: Carvedilol 25 MG TAB PO SCH ×2 (08:55→16:42)
[2021-03-15] MEDS: Fluticasone Propionate Nasal Spray 16 gm Bottle NASAL SCH (08:56)
[2021-03-15] MEDS: Loratadine 10 MG TAB PO SCH (08:56)
[2021-03-15] MEDS: Apixaban 5 MG TAB PO SCH ×2 (08:56→20:55)
[2021-03-15] MEDS: Polyethylene Glycol 3350 17 GM Packet PO SCH ×2 (08:57→20:55)
[2021-03-15] MEDS: Thiamine 100 MG TAB PO SCH (08:57)
[2021-03-15] MEDS: Lactated Ringer's 1,000 ML IV SCH ×2 (08:59→23:10)
[2021-03-15] MEDS: Melatonin 3 MG TAB PO SCH (20:54)
[2021-03-16 05:55] LABS: Anion Gap 12 mmol/L (10-20); BUN (Urea Nitrogen) 30 mg/dL (9.8-20.1); Calc. Creatinine Clearance 36 mL/min (70-130); Carbon Dioxide 26 mmol/L (23-31); Chloride 104 mmol/L (98-107); Glucose 236 mg/dL (80-115); Potassium 4.2 mmol/L (3.5-5.1); Sodium 138 mmol/L (136-145)
[2021-03-16] MEDS: HumaLOG 300 UNITS/3 ML VIAL SC PRN ×2 (06:25→14:41)
[2021-03-16] MEDS: Apixaban 5 MG TAB PO SCH ×2 (09:20→22:27)
[2021-03-16] MEDS: Carvedilol 25 MG TAB PO SCH ×2 (09:20→17:52)
[2021-03-16] MEDS: Loratadine 10 MG TAB PO SCH (09:20)
[2021-03-16] MEDS: Fluticasone Propionate Nasal Spray 16 gm Bottle NASAL SCH (09:20)
[2021-03-16] MEDS: Polyethylene Glycol 3350 17 GM Packet PO SCH ×2 (09:21→22:27)
[2021-03-16] MEDS: Thiamine 100 MG TAB PO SCH (09:21)
[2021-03-16] MEDS: Digoxin 0.5 MG/2 ML AMP SLOW IVP SCH ×2 (14:42→22:11)
[2021-03-16] MEDS: Lactated Ringer's 1,000 ML IV SCH ×2 (14:45→23:27)
[2021-03-16] MEDS: Melatonin 3 MG TAB PO SCH (22:27)
[2021-03-17] MEDS: HumaLOG 300 UNITS/3 ML VIAL SC PRN ×3 (00:11→12:29)
[2021-03-17] MEDS: Digoxin 0.5 MG/2 ML AMP SLOW IVP SCH (03:09)
[2021-03-17 05:33] LABS: Anion Gap 11 mmol/L (10-20); BUN (Urea Nitrogen) 25 mg/dL (9.8-20.1); Calc. Creatinine Clearance 42 mL/min (70-130); Calcium 8.7 mg/dL (7.8-10.44); Carbon Dioxide 26 mmol/L (23-31); Chloride 107 mmol/L (98-107); Glucose 154 mg/dL (80-115); Potassium 4.1 mmol/L (3.5-5.1); Sodium 140 mmol/L (136-145)
[2021-03-17] MEDS ORDERED: Digoxin 0.5 MG/2 ML AMP SLOW IVP SCH ×2 (08:00)
[2021-03-17] MEDS: Apixaban 5 MG TAB PO SCH ×2 (09:10→22:00)
[2021-03-17] MEDS: Thiamine 100 MG TAB PO SCH (09:10)
[2021-03-17] MEDS: Loratadine 10 MG TAB PO SCH (09:10)
[2021-03-17] MEDS: Polyethylene Glycol 3350 17 GM Packet PO SCH ×2 (09:10→22:00)
[2021-03-17] MEDS: Carvedilol 25 MG TAB PO SCH ×2 (09:10→16:59)
[2021-03-17] MEDS: Fluticasone Propionate Nasal Spray 16 gm Bottle NASAL SCH (09:11)
[2021-03-17] MEDS: Lactated Ringer's 1,000 ML IV SCH (09:26)
[2021-03-17 11:28] LABS: Amphetamine Not Detected (NotDetected); Barbiturates Screen Not Detected (NotDetected); Benzodiazepine Screen Not Detected (NotDetected); Cocaine Metabolite Screen Not Detected (NotDetected); Methadone Not Detected (NotDetected); Methamphetamine Not Detected (NotDetected); Opiate Screen Not Detected (NotDetected); Oxycodone Screen Not Detected (NotDetected); Phencyclidine (PCP) Not Detected (NotDetected); THC/Cannabinoid Screen Not Detected (NotDetected); Tricyclic Screen Not Detected (NotDetected)
[2021-03-17] MEDS: Melatonin 3 MG TAB PO SCH (22:00)
[2021-03-18 05:47] LABS: Anion Gap 13 mmol/L (10-20); BUN (Urea Nitrogen) 16 mg/dL (9.8-20.1); Calc. Creatinine Clearance 52 mL/min (70-130); Calcium 9.2 mg/dL (7.8-10.44); Carbon Dioxide 28 mmol/L (23-31); Chloride 104 mmol/L (98-107); Glucose 167 mg/dL (80-115); Potassium 3.8 mmol/L (3.5-5.1); Sodium 141 mmol/L (136-145)
[2021-03-18] MEDS: Carvedilol 25 MG TAB PO SCH ×2 (09:27→17:28)
[2021-03-18] MEDS: Apixaban 5 MG TAB PO SCH ×2 (09:27→22:16)
[2021-03-18] MEDS: Loratadine 10 MG TAB PO SCH (09:27)
[2021-03-18] MEDS: Thiamine 100 MG TAB PO SCH (09:28)
[2021-03-18] MEDS: Fluticasone Propionate Nasal Spray 16 gm Bottle NASAL SCH (09:29)
[2021-03-18] MEDS: Polyethylene Glycol 3350 17 GM Packet PO SCH ×2 (09:29→22:15)
[2021-03-18] MEDS ORDERED: Amlodipine 10 MG TAB PO SCH (10:00)
[2021-03-18] MEDS: HumaLOG 300 UNITS/3 ML VIAL SC PRN ×2 (12:02→17:34)
[2021-03-18] MEDS: Melatonin 3 MG TAB PO SCH (22:16)
[2021-03-19 06:06] LABS: Anion Gap 13 mmol/L (10-20); BUN (Urea Nitrogen) 13 mg/dL (9.8-20.1); Calc. Creatinine Clearance 49 mL/min (70-130); Calcium 8.9 mg/dL (7.8-10.44); Carbon Dioxide 29 mmol/L (23-31); Chloride 103 mmol/L (98-107); Glucose 161 mg/dL (80-115); Potassium 3.7 mmol/L (3.5-5.1); Sodium 141 mmol/L (136-145)
[2021-03-19] MEDS: HumaLOG 300 UNITS/3 ML VIAL SC PRN ×3 (06:22→20:36)
[2021-03-19] MEDS: Loratadine 10 MG TAB PO SCH (08:04)
[2021-03-19] MEDS: Apixaban 5 MG TAB PO SCH ×2 (08:04→20:18)
[2021-03-19] MEDS: Thiamine 100 MG TAB PO SCH (08:04)
[2021-03-19] MEDS: Polyethylene Glycol 3350 17 GM Packet PO SCH ×2 (08:04→20:19)
[2021-03-19] MEDS: Carvedilol 25 MG TAB PO SCH ×2 (08:04→16:36)
[2021-03-19] MEDS: Fluticasone Propionate Nasal Spray 16 gm Bottle NASAL SCH (08:05)
[2021-03-19] MEDS: Melatonin 3 MG TAB PO SCH (20:18)
[2021-03-20 05:38] LABS: Anion Gap 11 mmol/L (10-20); BUN (Urea Nitrogen) 15 mg/dL (9.8-20.1); Calc. Creatinine Clearance 48 mL/min (70-130); Calcium 8.8 mg/dL (7.8-10.44); Carbon Dioxide 30 mmol/L (23-31); Chloride 105 mmol/L (98-107); Glucose 162 mg/dL (80-115); Potassium 3.7 mmol/L (3.5-5.1); Sodium 142 mmol/L (136-145)
[2021-03-20] MEDS: Carvedilol 25 MG TAB PO SCH ×2 (08:52→17:07)
[2021-03-20] MEDS: Apixaban 5 MG TAB PO SCH (08:52)
[2021-03-20] MEDS: Fluticasone Propionate Nasal Spray 16 gm Bottle NASAL SCH (08:53)
[2021-03-20] MEDS: Thiamine 100 MG TAB PO SCH (08:54)
[2021-03-20] MEDS: Polyethylene Glycol 3350 17 GM Packet PO SCH (08:54)
[2021-03-20] MEDS: Loratadine 10 MG TAB PO SCH (08:54)
[2021-03-20] MEDS ORDERED: Diltiazem HCl CD 300 mg Capsule PO SCH (09:00)
[2021-03-20 10:31] VITALS: TEMP 97.8
[2021-03-20] MEDS: HumaLOG 300 UNITS/3 ML VIAL SC PRN (12:11)
[2021-03-20 12:35] VITALS: BP 133/78
== END 2021-03-20 19:09 | disposition home or self-care (01) | DRG 309 ==
LOC: ERS 07:52 → ERHOLD 10:49 → 2SW 16:04 → OBSVTOIN 03-14 14:42
PROVIDERS: ADMIT Family Medicine; ATTEND Family Medicine
DX: I48.19 Other persistent atrial fibrillation (principal); I82.409 Acute embolism and thrombosis of unspecified deep veins of unspecified lower extremity; Z20.822 Contact with and (suspected) exposure to COVID-19; N17.9 Acute kidney failure, unspecified; I13.0 Hypertensive heart and chronic kidney disease with heart failure and stage 1 through stage 4 chronic kidney disease, or unspecified chronic kidney disease; I50.32 Chronic diastolic (congestive) heart failure; N18.9 Chronic kidney disease, unspecified; D63.1 Anemia in chronic kidney disease; F32.A Depression, unspecified; M21.379 Foot drop, unspecified foot; H54.40 Blindness, one eye, unspecified eye; F14.10 Cocaine abuse, uncomplicated; F10.10 Alcohol abuse, uncomplicated; E66.01 Morbid (severe) obesity due to excess calories; Z91.19 Patient's noncompliance with other medical treatment and regimen; Z86.718 Personal history of other venous thrombosis and embolism; Z79.01 Long term (current) use of anticoagulants; Z79.899 Other long term (current) drug therapy; Z68.32 Body mass index [BMI] 32.0-32.9, adult
CPT/HCPCS: 36415; 36416; 71045; 80048; 80053; 80306; 80307; 81003; 81015; 82570; 83735; 83880; 84100; 84484; 84540; 85025; 90471; 90686; 93005; 96365; 96366; 96375; 96376; 99292; G0008; G0378; J1160; J1815; J1940; J3490; J7120; U0003; U0005

== ENCOUNTER 2021-04-06 18:12 | Inpatient (IN) | payer MEDICARE ==
[2021-04-06 19:13] LABS: #Basophils 0.1 thou/uL (0.0-0.2); #Eosinphils 0.3 thou/uL (0.0-0.7); #Lymphocytes 3.1 thou/uL (1.20-3.40); #Monocytes 0.6 thou/uL (0.11-0.59); #Neutrophils 4.6 thou/uL (1.40-6.50); %Basophils 0.9 % (0.0-1.0); %Lymphocytes 35.8 % (21.0-51.0); %Monocytes 6.7 % (0.0-10.0); %Neutrophils 53.7 % (42.0-75.0); Hemoglobin 11.6 g/dL (12.0-16.0); Mean Corpuscular HGB CONC 32.4 g/dL (32.0-36.0); Mean Corpuscular Hemoglobin 33.9 pg (27.0-31.0); Mean Platelet Volume 7.6 fL (7.4-10.4); Platelet Count 209 thou/uL (130-400); RBC Distribution Width 12.9 % (11.5-14.5); Red Blood Cell (RBC) Count 3.42 mill/uL (4.20-5.40); White Blood Cell (WBC) Count 8.5 thou/uL (4.8-10.8)
[2021-04-06 19:33] LABS: ALT (SGPT) 13 U/L (8-55); AST (SGOT) 17 U/L (5-34); Albumin 3.7 g/dL (3.4-4.8); Alkaline Phosphatase 138 U/L (40-110); Anion Gap 12 mmol/L (10-20); BUN (Urea Nitrogen) 33 mg/dL (9.8-20.1); Bilirubin, Total 1.2 mg/dL (0.2-1.2); Calc. Creatinine Clearance 0 mL/min (70-130); Calcium 9.8 mg/dL (7.8-10.44); Carbon Dioxide 26 mmol/L (23-31); Chloride 107 mmol/L (98-107); Globulin 3.6 g/dL (2.4-3.5); Glucose 180 mg/dL (80-115); Potassium 4.1 mmol/L (3.5-5.1); Protein, Total 7.3 g/dL (5.8-8.1); Sodium 141 mmol/L (136-145)
[2021-04-06 23:44] LABS: CKMB 1.2 ng/mL (0-6.6)
[2021-04-07] MEDS ORDERED: Furosemide 20 MG/2 ML VIAL ONE (00:22)
[2021-04-07 02:05] LABS: SARS-CoV-2 NAA Rapid Test Not Detected (NotDetected)
[2021-04-07] MEDS ORDERED: Ondansetron ODT 4 MG TAB PO PRN (03:05)
[2021-04-07] MEDS ORDERED: Dextrose 5% in Water 1,000 ML IV PRN (03:05)
[2021-04-07] MEDS ORDERED: Calcium Carbonate 500 MG ChewTAB PO PRN (03:05)
[2021-04-07] MEDS ORDERED: Dextrose 50% Abboject 50 ML SYRINGE SLOW IVP PRN (03:05)
[2021-04-07 05:07] VITALS: BMI 34.8
[2021-04-07 05:57] LABS: #Basophils 0.1 thou/uL (0.0-0.2); #Eosinphils 0.2 thou/uL (0.0-0.7); #Lymphocytes 2.7 thou/uL (1.20-3.40); #Monocytes 0.7 thou/uL (0.11-0.59); #Neutrophils 4.1 thou/uL (1.40-6.50); %Lymphocytes 34.7 % (21.0-51.0); %Monocytes 8.6 % (0.0-10.0); %Neutrophils 52.8 % (42.0-75.0); Hemoglobin 11.8 g/dL (12.0-16.0); Mean Corpuscular HGB CONC 31.6 g/dL (32.0-36.0); Mean Corpuscular Hemoglobin 33.8 pg (27.0-31.0); Mean Platelet Volume 7.6 fL (7.4-10.4); Platelet Count 200 thou/uL (130-400); RBC Distribution Width 13.1 % (11.5-14.5); Red Blood Cell (RBC) Count 3.48 mill/uL (4.20-5.40); White Blood Cell (WBC) Count 7.8 thou/uL (4.8-10.8)
[2021-04-07 06:18] LABS: Anion Gap 11 mmol/L (10-20); BUN (Urea Nitrogen) 31 mg/dL (9.8-20.1); Calc. Creatinine Clearance 43 mL/min (70-130); Calcium 9.7 mg/dL (7.8-10.44); Carbon Dioxide 25 mmol/L (23-31); Chloride 108 mmol/L (98-107); Glucose 156 mg/dL (80-115); Potassium 3.9 mmol/L (3.5-5.1); Sodium 140 mmol/L (136-145)
[2021-04-07] MEDS: Apixaban 5 MG TAB PO SCH ×2 (08:26→22:22)
[2021-04-07] MEDS: Loratadine 10 MG TAB PO SCH (08:26)
[2021-04-07] MEDS: Polyethylene Glycol 3350 17 GM Packet PO SCH ×2 (08:26→22:25)
[2021-04-07] MEDS: Thiamine 100 MG TAB PO SCH (08:26)
[2021-04-07] MEDS: Amlodipine 10 MG TAB PO SCH (08:26)
[2021-04-07] MEDS: Carvedilol 25 MG TAB PO SCH ×2 (08:26→17:42)
[2021-04-07] MEDS: Diltiazem HCl CD 300 mg Capsule PO SCH (08:27)
[2021-04-07] MEDS ORDERED: Furosemide 20 MG/2 ML VIAL SLOW IVP SCH ×2 (09:00→10:15)
[2021-04-07] MEDS: Fluticasone Propionate Nasal Spray 16 gm Bottle NASAL SCH (10:55)
[2021-04-07 15:29] LABS: Amphetamine Not Detected (NotDetected); Barbiturates Screen Not Detected (NotDetected); Benzodiazepine Screen Not Detected (NotDetected); Cocaine Metabolite Screen Not Detected (NotDetected); Methadone Not Detected (NotDetected); Methamphetamine Not Detected (NotDetected); Opiate Screen Not Detected (NotDetected); Oxycodone Screen Not Detected (NotDetected); Phencyclidine (PCP) Not Detected (NotDetected); THC/Cannabinoid Screen Not Detected (NotDetected); Tricyclic Screen Not Detected (NotDetected)
[2021-04-07] MEDS ORDERED: guaiFENesin ER 600 MG TAB PO PRN (22:09)
[2021-04-07] MEDS: Melatonin 3 MG TAB PO SCH (22:24)
[2021-04-07] MEDS: HumaLOG 300 UNITS/3 ML VIAL SC PRN (22:28)
[2021-04-08 05:15] LABS: #Basophils 0.1 thou/uL (0.0-0.2); #Eosinphils 0.2 thou/uL (0.0-0.7); #Monocytes 0.7 thou/uL (0.11-0.59); #Neutrophils 4.8 thou/uL (1.40-6.50); %Basophils 0.8 % (0.0-1.0); %Eosinophils 2.5 % (0.0-10.0); %Lymphocytes 34.2 % (21.0-51.0); %Neutrophils 54.5 % (42.0-75.0); Hemoglobin 11.4 g/dL (12.0-16.0); Mean Corpuscular HGB CONC 32.4 g/dL (32.0-36.0); Mean Corpuscular Hemoglobin 34.3 pg (27.0-31.0); Mean Platelet Volume 7.5 fL (7.4-10.4); Platelet Count 203 thou/uL (130-400); RBC Distribution Width 13.1 % (11.5-14.5); Red Blood Cell (RBC) Count 3.34 mill/uL (4.20-5.40); White Blood Cell (WBC) Count 8.7 thou/uL (4.8-10.8)
[2021-04-08 05:38] LABS: Anion Gap 14 mmol/L (10-20); BUN (Urea Nitrogen) 28 mg/dL (9.8-20.1); Calc. Creatinine Clearance 47 mL/min (70-130); Calcium 9.3 mg/dL (7.8-10.44); Carbon Dioxide 25 mmol/L (23-31); Chloride 107 mmol/L (98-107); Glucose 144 mg/dL (80-115); Potassium 3.7 mmol/L (3.5-5.1); Sodium 142 mmol/L (136-145)
[2021-04-08] MEDS: Thiamine 100 MG TAB PO SCH (09:11)
[2021-04-08] MEDS: Apixaban 5 MG TAB PO SCH ×2 (09:11→20:24)
[2021-04-08] MEDS: Loratadine 10 MG TAB PO SCH (09:11)
[2021-04-08] MEDS: Polyethylene Glycol 3350 17 GM Packet PO SCH ×2 (09:11→20:24)
[2021-04-08] MEDS: Carvedilol 25 MG TAB PO SCH ×2 (09:14→16:07)
[2021-04-08] MEDS: Amlodipine 10 MG TAB PO SCH (09:14)
[2021-04-08] MEDS: Diltiazem HCl CD 300 mg Capsule PO SCH (09:14)
[2021-04-08] MEDS: Furosemide 40 MG/4 ML VIAL SLOW IVP SCH ×2 (09:14→13:14)
[2021-04-08] MEDS: Fluticasone Propionate Nasal Spray 16 gm Bottle NASAL SCH (09:15)
[2021-04-08] MEDS ORDERED: Potassium Chloride 20 MEQ TAB PO SCH (10:30)
[2021-04-08] MEDS: HumaLOG 300 UNITS/3 ML VIAL SC PRN ×2 (11:49→21:16)
[2021-04-08] MEDS: Melatonin 3 MG TAB PO SCH (20:24)
[2021-04-09 05:12] LABS: Anion Gap 12 mmol/L (10-20); BUN (Urea Nitrogen) 24 mg/dL (9.8-20.1); Calc. Creatinine Clearance 47 mL/min (70-130); Calcium 9.2 mg/dL (7.8-10.44); Carbon Dioxide 27 mmol/L (23-31); Chloride 107 mmol/L (98-107); Glucose 159 mg/dL (80-115); Potassium 3.8 mmol/L (3.5-5.1); Sodium 142 mmol/L (136-145)
[2021-04-09] MEDS: Amlodipine 10 MG TAB PO SCH (09:15)
[2021-04-09] MEDS: Loratadine 10 MG TAB PO SCH (09:15)
[2021-04-09] MEDS: Carvedilol 25 MG TAB PO SCH ×2 (09:15→17:02)
[2021-04-09] MEDS: Apixaban 5 MG TAB PO SCH ×2 (09:15→20:43)
[2021-04-09] MEDS: Diltiazem HCl CD 300 mg Capsule PO SCH (09:15)
[2021-04-09] MEDS: Thiamine 100 MG TAB PO SCH (09:15)
[2021-04-09] MEDS: Furosemide 40 MG/4 ML VIAL SLOW IVP SCH ×2 (09:16→13:07)
[2021-04-09] MEDS: Polyethylene Glycol 3350 17 GM Packet PO SCH ×4 (09:16→20:49)
[2021-04-09] MEDS: HumaLOG 300 UNITS/3 ML VIAL SC PRN ×2 (10:55→17:02)
[2021-04-09] MEDS: Fluticasone Propionate Nasal Spray 16 gm Bottle NASAL SCH (13:06)
[2021-04-09] MEDS: Melatonin 3 MG TAB PO SCH (20:42)
[2021-04-10] MEDS: HumaLOG 300 UNITS/3 ML VIAL SC PRN ×4 (06:38→22:33)
[2021-04-10] MEDS: Thiamine 100 MG TAB PO SCH (08:45)
[2021-04-10] MEDS: Apixaban 5 MG TAB PO SCH ×2 (08:45→22:32)
[2021-04-10] MEDS: Furosemide 40 MG/4 ML VIAL SLOW IVP SCH (08:45)
[2021-04-10] MEDS: Carvedilol 25 MG TAB PO SCH ×2 (08:45→16:31)
[2021-04-10] MEDS: Lisinopril 10 MG TAB PO SCH (08:45)
[2021-04-10] MEDS: Polyethylene Glycol 3350 17 GM Packet PO SCH ×3 (08:45→22:33)
[2021-04-10] MEDS: Loratadine 10 MG TAB PO SCH (08:45)
[2021-04-10] MEDS: Fluticasone Propionate Nasal Spray 16 gm Bottle NASAL SCH (08:45)
[2021-04-10] MEDS: Diltiazem HCl CD 300 mg Capsule PO SCH (08:46)
[2021-04-10] MEDS ORDERED: Lisinopril 20 MG TAB PO SCH (09:00)
[2021-04-10 13:05] LABS: Anion Gap 13 mmol/L (10-20); BUN (Urea Nitrogen) 23 mg/dL (9.8-20.1); Calc. Creatinine Clearance 49 mL/min (70-130); Calcium 9.4 mg/dL (7.8-10.44); Carbon Dioxide 28 mmol/L (23-31); Chloride 104 mmol/L (98-107); Glucose 180 mg/dL (80-115); Potassium 3.8 mmol/L (3.5-5.1); Sodium 141 mmol/L (136-145)
[2021-04-10] MEDS: Furosemide 40 MG TAB PO SCH (14:02)
[2021-04-10] MEDS: Melatonin 3 MG TAB PO SCH (22:32)
[2021-04-11] MEDS: Acetaminophen 325 MG TAB PO PRN ×2 (01:34→11:52)
[2021-04-11 08:46] LABS: Anion Gap 13 mmol/L (10-20); BUN (Urea Nitrogen) 21 mg/dL (9.8-20.1); Calc. Creatinine Clearance 41 mL/min (70-130); Calcium 9.1 mg/dL (7.8-10.44); Carbon Dioxide 27 mmol/L (23-31); Chloride 106 mmol/L (98-107); Glucose 182 mg/dL (80-115); Potassium 3.8 mmol/L (3.5-5.1); Sodium 142 mmol/L (136-145)
[2021-04-11] MEDS: Diltiazem HCl CD 300 mg Capsule PO SCH (08:52)
[2021-04-11] MEDS: Carvedilol 25 MG TAB PO SCH (08:52)
[2021-04-11] MEDS: Thiamine 100 MG TAB PO SCH (08:52)
[2021-04-11] MEDS: Loratadine 10 MG TAB PO SCH (08:52)
[2021-04-11] MEDS: Fluticasone Propionate Nasal Spray 16 gm Bottle NASAL SCH (08:52)
[2021-04-11] MEDS: Apixaban 5 MG TAB PO SCH (08:52)
[2021-04-11] MEDS: Lisinopril 10 MG TAB PO SCH (08:52)
[2021-04-11] MEDS: Furosemide 40 MG TAB PO SCH ×2 (08:52→14:09)
[2021-04-11] MEDS: Polyethylene Glycol 3350 17 GM Packet PO SCH (08:53)
[2021-04-11 11:48] VITALS: BP 101/76; TEMP 98.4
[2021-04-11] MEDS: HumaLOG 300 UNITS/3 ML VIAL SC PRN (11:48)
== END 2021-04-11 15:45 | disposition home health service (06) | DRG 291 ==
LOC: ERS 18:12 → NEURO 04-07 00:06 → OBSVTOIN 04-07 11:07
PROVIDERS: ADMIT Student in an Organized Health Care Education/Training Program; ATTEND Student in an Organized Health Care Education/Training Program
DX: I13.0 Hypertensive heart and chronic kidney disease with heart failure and stage 1 through stage 4 chronic kidney disease, or unspecified chronic kidney disease (principal); I50.33 Acute on chronic diastolic (congestive) heart failure; N17.9 Acute kidney failure, unspecified; I48.20 Chronic atrial fibrillation, unspecified; Z20.822 Contact with and (suspected) exposure to COVID-19; D53.9 Nutritional anemia, unspecified; F32.A Depression, unspecified; H54.40 Blindness, one eye, unspecified eye; F17.210 Nicotine dependence, cigarettes, uncomplicated; R77.8 Other specified abnormalities of plasma proteins; F14.10 Cocaine abuse, uncomplicated; I07.1 Rheumatic tricuspid insufficiency; N18.9 Chronic kidney disease, unspecified; Z86.718 Personal history of other venous thrombosis and embolism; Z79.899 Other long term (current) drug therapy; Z79.01 Long term (current) use of anticoagulants; Z79.84 Long term (current) use of oral hypoglycemic drugs; Z90.89 Acquired absence of other organs; Z71.51 Drug abuse counseling and surveillance of drug abuser; Z91.14 Patient's other noncompliance with medication regimen
CPT/HCPCS: 0240U; 36415; 36416; 71045; 80048; 80053; 80306; 82553; 83880; 84484; 85025; 93005; 94640; 96374; 96376; G0378; J1815; J1940; J7620

== ENCOUNTER 2024-10-30 18:14 | Inpatient (IN) | payer MEDICARE, MEDICAID ==
[2024-10-30 18:54] LABS: Hematocrit 41.1 % (36.0-47.0); Hemoglobin 13.4 g/dL (12.0-16.0); Mean Corpuscular Hemoglobin 30.9 pg (27.0-31.0); Mean Corpuscular Volume 94.7 fL (78.0-98.0); Platelet Count 267 10x3/uL (130-400); Red Blood Cell (RBC) Count 4.34 mill/uL (4.20-5.40); White Blood Cell (WBC) Count 7.76 10x3/uL (4.8-10.8)
[2024-10-30 19:14] LABS: ALT (SGPT) 52 U/L (Less than 34); AST (SGOT) 97 U/L (11-34); Albumin 3.0 g/dL (3.1-4.5); Alkaline Phosphatase 268 U/L (40-110); Anion Gap 23 mmol/L (10-20); BUN (Urea Nitrogen) 47 mg/dL (9.8-20.1); Bilirubin, Total 2.5 mg/dL (0.3-1.2); Calc. Creatinine Clearance 0 mL/min (70-130); Calcium 8.5 mg/dL (7.8-10.44); Carbon Dioxide 24 mmol/L (23-31); Chloride 97 mmol/L (98-107); Globulin 4.7 g/dL (2.4-3.5); Glucose 101 mg/dL (80-115); Potassium 3.0 mmol/L (3.5-5.1); Sodium 141 mmol/L (136-145)
[2024-10-30 19:34] LABS: Nucleated RBC (Manual Ct) 12 % (0); Platelet Adequacy Comment Platelets Normal; Polychromasia SLIGHT = 2-3 cells HPF (0-2)
[2024-10-30 20:54] LABS: Lipase 11 U/L (8-78); Magnesium 1.4 mg/dL (1.6-2.6)
[2024-10-30 21:45] LABS: Actual Bicarbonate (HCO3v) 24.3 mEq/L (22-28); Base Excess -0.1 mEq/L (-2.0 to +3.0); Calcium, Ionized (venous) 0.86 mmol/L (1.16-1.32); Chloride (VBG) 101 mmol/L (98-106); Hematocrit-VBG 41 % (36.0-47.0); Hemoglobin (Hb) 13.9 g/dL (11.7-16.1); Potassium (VBG) 3.04 mmol/L (3.70-5.30); Sodium 141 mmol/L (133-146)
[2024-10-30] MEDS ORDERED: Potassium Bicarbonate/Cit Ac 20 MEQ TAB ONE (21:53)
[2024-10-30 23:17] VITALS: BMI 23.8
[2024-10-31] MEDS: Magnesium 2 GM/50 ML(in water) 2 GM in Premix 1 BAG IVPB SCH (00:23)
[2024-10-31] MEDS ORDERED: Glucagon 1 MG/ML KIT IM PRN (00:25)
[2024-10-31] MEDS ORDERED: Dextrose 50% Abboject 50 ML SYRINGE SLOW IVP PRN (00:25)
[2024-10-31] MEDS: Ondansetron PF 4 MG/2 ML Vial IVP PRN (05:53)
[2024-10-31 06:01] LABS: Digoxin 2.04 ng/mL (0.8-2.0)
[2024-10-31 06:05] LABS: Anion Gap 20 mmol/L (10-20); BUN (Urea Nitrogen) 47 mg/dL (9.8-20.1); Calc. Creatinine Clearance 9 mL/min (70-130); Calcium 7.2 mg/dL (7.8-10.44); Carbon Dioxide 24 mmol/L (23-31); Chloride 101 mmol/L (98-107); Glucose 90 mg/dL (80-115); Magnesium 2.0 mg/dL (1.6-2.6); Potassium 2.5 mmol/L (3.5-5.1); Sodium 142 mmol/L (136-145)
[2024-10-31 06:37] LABS: Hematocrit 36.4 % (36.0-47.0); Hemoglobin 12.0 g/dL (12.0-16.0); Mean Corpuscular Hemoglobin 30.9 pg (27.0-31.0); Mean Corpuscular Volume 93.8 fL (78.0-98.0); Platelet Count 223 10x3/uL (130-400); Red Blood Cell (RBC) Count 3.88 mill/uL (4.20-5.40); White Blood Cell (WBC) Count 7.67 10x3/uL (4.8-10.8)
[2024-10-31] MEDS: Potassium Chloride 20 MEQ in Premix 1 BAG IVPB SCH (07:06)
[2024-10-31] MEDS ORDERED: Digoxin 0.25 MG TAB PO SCH (09:00)
[2024-10-31] MEDS: Divalproex Sodium 125 mg Sprinkle Capsule PO SCH (09:08)
[2024-10-31] MEDS: Metoprolol Succinate XL 100 MG ER.TAB PO SCH (09:08)
[2024-10-31] MEDS: Apixaban 5 MG TAB PO SCH (09:08)
[2024-10-31 09:41] LABS: Anisocytosis SLIGHT = 6-15 cells HPF (0-5); Burr Cells MODERATE= 6-15 cells HPF (0-1); Macrocytosis SLIGHT = 6-15 cells HPF (0-5); Nucleated RBC (Manual Ct) 19 % (0); Plasma Cells 1 % (0-0); Platelet Adequacy Comment Platelets Normal; Poikilocytosis SLIGHT = 6-15 cells HPF (0-5); Polychromasia SLIGHT = 2-3 cells HPF (0-2); Smudge Cells 18.7 %
[2024-10-31] MEDS: cefTRIAXone\\ROCEPHIN 2 GM in Sodium Chloride 0.9% 100 ML IVPB SCH (11:22)
[2024-10-31] MEDS ORDERED: Albuterol 200 PUFF INH INH PRN (12:06)
[2024-10-31 15:17] LABS: Campy jejuni + coli by PCR Negative (Negative); STEC Shiga Toxin 1+2 Negative (Negative); Salmonella spp. by PCR Negative (Negative); Shigella spp + EIEC by PCR Negative (Negative)
[2024-10-31 17:19] LABS: Potassium 3.0 mmol/L (3.5-5.1)
[2024-10-31] MEDS: Mirtazapine 15 MG TAB PO SCH (20:04)
[2024-10-31] MEDS ORDERED: Non-Formulary Item 1 EACH (Colchicine [Colchicine] 0.6 MG Capsule) PO SCH (21:00)
[2024-11-01 06:02] LABS: Digoxin 1.55 ng/mL (0.8-2.0)
[2024-11-01 06:39] LABS: Anion Gap 21 mmol/L (10-20); BUN (Urea Nitrogen) 47 mg/dL (9.8-20.1); Calc. Creatinine Clearance 12 mL/min (70-130); Calcium 7.6 mg/dL (7.8-10.44); Carbon Dioxide 16 mmol/L (23-31); Chloride 108 mmol/L (98-107); Glucose 95 mg/dL (80-115); Magnesium 1.8 mg/dL (1.6-2.6); Potassium 2.8 mmol/L (3.5-5.1); Sodium 142 mmol/L (136-145)
[2024-11-01] MEDS: Ergocalciferol 1.25 MG(50,000 UNITS) CAP PO SCH (09:25)
[2024-11-01] MEDS: Divalproex Sodium 125 mg Sprinkle Capsule PO SCH (09:25)
[2024-11-01] MEDS: Metoprolol Succinate XL 100 MG ER.TAB PO SCH (09:25)
[2024-11-01] MEDS: Calcitriol 0.25 MCG CAP PO SCH (09:25)
[2024-11-01] MEDS: Aspirin 81 mg Enteric Coated Tablet PO SCH (09:26)
[2024-11-01] MEDS: Pantoprazole 40 MG DR.TAB PO SCH (09:26)
[2024-11-01] MEDS: Potassium Bicarbonate/Cit Ac 20 MEQ TAB PO SCH (11:28)
[2024-11-01 14:21] LABS: Bacteria/HPF None Seen HPF (None Seen); Glucose, Urine (Dipstick) Normal (Negative); Leukocyte 25 Leu/uL (Negative); Protein, Urine (Dipstick) 50 mg/dL (Neg-Trace); RBC/HPF 0-3 HPF (0-3); Specific Gravity, Urine 1.020 (1.002-1.036); Yeast-Budding 1+ HPF (None Seen)
[2024-11-01] MEDS: Acetaminophen 325 MG TAB PO PRN (18:12)
[2024-11-01] MEDS: HYDROcodone/Acetaminophen 5/325 mg Tablet PO SCH (20:17)
[2024-11-01 21:10] LABS: Anion Gap 21 mmol/L (10-20); BUN (Urea Nitrogen) 42 mg/dL (9.8-20.1); Calc. Creatinine Clearance 15 mL/min (70-130); Calcium 8.1 mg/dL (7.8-10.44); Carbon Dioxide 18 mmol/L (23-31); Chloride 107 mmol/L (98-107); Glucose 88 mg/dL (80-115); Potassium 2.9 mmol/L (3.5-5.1); Sodium 143 mmol/L (136-145)
[2024-11-02 05:36] LABS: Anion Gap 18 mmol/L (10-20); BUN (Urea Nitrogen) 39 mg/dL (9.8-20.1); Calc. Creatinine Clearance 19 mL/min (70-130); Calcium 8.1 mg/dL (7.8-10.44); Carbon Dioxide 21 mmol/L (23-31); Chloride 106 mmol/L (98-107); Glucose 96 mg/dL (80-115); Magnesium 1.8 mg/dL (1.6-2.6); Potassium 2.9 mmol/L (3.5-5.1); Sodium 142 mmol/L (136-145)
[2024-11-02] MEDS: Potassium Bicarbonate/Cit Ac 20 MEQ TAB PO SCH (11:36)
[2024-11-03 05:14] LABS: Anion Gap 17 mmol/L (10-20); BUN (Urea Nitrogen) 36 mg/dL (9.8-20.1); Calc. Creatinine Clearance 28 mL/min (70-130); Calcium 7.9 mg/dL (7.8-10.44); Carbon Dioxide 26 mmol/L (23-31); Chloride 107 mmol/L (98-107); Glucose 123 mg/dL (80-115); Potassium 4.4 mmol/L (3.5-5.1); Sodium 146 mmol/L (136-145)
[2024-11-04 06:15] LABS: Hematocrit 30.0 % (36.0-47.0); Hemoglobin 9.8 g/dL (12.0-16.0); Mean Corpuscular Hemoglobin 31.5 pg (27.0-31.0); Mean Corpuscular Volume 96.5 fL (78.0-98.0); Platelet Count 189 10x3/uL (130-400); Red Blood Cell (RBC) Count 3.11 mill/uL (4.20-5.40); White Blood Cell (WBC) Count 15.22 10x3/uL (4.8-10.8)
[2024-11-04 06:33] LABS: ALT (SGPT) 48 U/L (Less than 34); AST (SGOT) 79 U/L (11-34); Albumin 2.6 g/dL (3.1-4.5); Alkaline Phosphatase 186 U/L (40-110); Anion Gap 17 mmol/L (10-20); BUN (Urea Nitrogen) 35 mg/dL (9.8-20.1); Bilirubin, Total 1.2 mg/dL (0.3-1.2); Calc. Creatinine Clearance 32 mL/min (70-130); Calcium 8.0 mg/dL (7.8-10.44); Carbon Dioxide 25 mmol/L (23-31); Chloride 106 mmol/L (98-107); Globulin 3.3 g/dL (2.4-3.5); Glucose 97 mg/dL (80-115); Magnesium 1.6 mg/dL (1.6-2.6); Potassium 4.2 mmol/L (3.5-5.1); Sodium 144 mmol/L (136-145)
[2024-11-04 06:47] LABS: Anisocytosis SLIGHT = 6-15 cells HPF (0-5); Nucleated RBC (Manual Ct) 13 % (0); Platelet Adequacy Comment Platelets Normal; Poikilocytosis MODERATE=16-30 cells HPF (0-5); Polychromasia SLIGHT = 2-3 cells HPF (0-2); Target Cells SLIGHT = 2-5 cells HPF (0-1)
[2024-11-05] MEDS: OLANZapine 10 MG VIAL IM SCH (00:51)
[2024-11-05 05:21] LABS: Hematocrit 32.2 % (36.0-47.0); Hemoglobin 10.4 g/dL (12.0-16.0); Mean Corpuscular Hemoglobin 30.8 pg (27.0-31.0); Mean Corpuscular Volume 95.3 fL (78.0-98.0); Platelet Count 225 10x3/uL (130-400); Red Blood Cell (RBC) Count 3.38 mill/uL (4.20-5.40); White Blood Cell (WBC) Count 18.21 10x3/uL (4.8-10.8)
[2024-11-05 05:41] LABS: ALT (SGPT) 49 U/L (Less than 34); AST (SGOT) 87 U/L (11-34); Albumin 2.6 g/dL (3.1-4.5); Alkaline Phosphatase 276 U/L (40-110); Anion Gap 18 mmol/L (10-20); BUN (Urea Nitrogen) 36 mg/dL (9.8-20.1); Bilirubin, Total 1.3 mg/dL (0.3-1.2); Calc. Creatinine Clearance 34 mL/min (70-130); Calcium 8.3 mg/dL (7.8-10.44); Carbon Dioxide 25 mmol/L (23-31); Chloride 107 mmol/L (98-107); Globulin 3.5 g/dL (2.4-3.5); Glucose 102 mg/dL (80-115); Magnesium 1.7 mg/dL (1.6-2.6); Potassium 4.3 mmol/L (3.5-5.1); Sodium 146 mmol/L (136-145)
[2024-11-05 05:54] LABS: Burr Cells SLIGHT = 2-5 cells HPF (0-1); Nucleated RBC (Manual Ct) 12 % (0); Platelet Adequacy Comment Platelets Normal; Polychromasia SLIGHT = 2-3 cells HPF (0-2); Smudge Cells 9.2 %
[2024-11-05 15:05] LABS: Anion Gap 18 mmol/L (10-20); BUN (Urea Nitrogen) 35 mg/dL (9.8-20.1); Calc. Creatinine Clearance 34 mL/min (70-130); Calcium 8.3 mg/dL (7.8-10.44); Carbon Dioxide 23 mmol/L (23-31); Chloride 106 mmol/L (98-107); Glucose 180 mg/dL (80-115); Potassium 4.2 mmol/L (3.5-5.1); Sodium 143 mmol/L (136-145)
[2024-11-06 04:55] LABS: Hematocrit 30.0 % (36.0-47.0); Hemoglobin 9.6 g/dL (12.0-16.0); Mean Corpuscular Hemoglobin 31.2 pg (27.0-31.0); Mean Corpuscular Volume 97.4 fL (78.0-98.0); Platelet Count 225 10x3/uL (130-400); Red Blood Cell (RBC) Count 3.08 mill/uL (4.20-5.40); White Blood Cell (WBC) Count 16.20 10x3/uL (4.8-10.8)
[2024-11-06 05:04] LABS: Anion Gap 15 mmol/L (10-20); BUN (Urea Nitrogen) 33 mg/dL (9.8-20.1); Calc. Creatinine Clearance 38 mL/min (70-130); Calcium 8.2 mg/dL (7.8-10.44); Carbon Dioxide 26 mmol/L (23-31); Chloride 107 mmol/L (98-107); Glucose 133 mg/dL (80-115); Magnesium 1.7 mg/dL (1.6-2.6); Potassium 4.0 mmol/L (3.5-5.1); Sodium 144 mmol/L (136-145)
[2024-11-06 05:23] LABS: Anisocytosis SLIGHT = 6-15 cells HPF (0-5); Nucleated RBC (Manual Ct) 22 % (0); Platelet Adequacy Comment Platelets Normal; Polychromasia MODERATE = 3-4 cells HPF (0-2); Target Cells SLIGHT = 2-5 cells HPF (0-1)
[2024-11-07 03:04] LABS: Glucose, Urine (Dipstick) Normal (Negative); Leukocyte 500 Leu/uL (Negative); Protein, Urine (Dipstick) 30 mg/dL (Neg-Trace); Specific Gravity, Urine 1.023 (1.002-1.036)
[2024-11-07 03:05] LABS: Bacteria/HPF None Seen HPF (None Seen); CAUTI Indications for Culture Alt mental st,lethar; RBC/HPF 21-50 HPF (0-3); Yeast-Budding 1+ HPF (None Seen)
[2024-11-07 03:10] LABS: Urine Culture Reflex Yes Yes
[2024-11-07 05:00] LABS: Anion Gap 15 mmol/L (10-20); BUN (Urea Nitrogen) 38 mg/dL (9.8-20.1); Calc. Creatinine Clearance 38 mL/min (70-130); Calcium 8.3 mg/dL (7.8-10.44); Carbon Dioxide 24 mmol/L (23-31); Chloride 109 mmol/L (98-107); Glucose 104 mg/dL (80-115); Magnesium 1.8 mg/dL (1.6-2.6); Potassium 3.8 mmol/L (3.5-5.1); Sodium 144 mmol/L (136-145)
[2024-11-07 05:06] LABS: Hematocrit 28.5 % (36.0-47.0); Hemoglobin 9.3 g/dL (12.0-16.0); Mean Corpuscular Hemoglobin 31.8 pg (27.0-31.0); Mean Corpuscular Volume 97.6 fL (78.0-98.0); Platelet Count 227 10x3/uL (130-400); Red Blood Cell (RBC) Count 2.92 mill/uL (4.20-5.40); White Blood Cell (WBC) Count 14.00 10x3/uL (4.8-10.8)
[2024-11-07 05:39] LABS: Nucleated RBC (Manual Ct) 36 % (0); Platelet Adequacy Comment Platelets Normal; Schistocytes SLIGHT = 2-5 cells HPF (0-1); Smudge Cells 13.7 %
[2024-11-07] MEDS ORDERED: Ergocalciferol 1.25 MG(50,000 UNITS) CAP PO SCH (09:00)
[2024-11-07] MEDS ORDERED: Vancomycin 1 GM in Premix 1 BAG IVPB SCH (11:39)
[2024-11-07] MEDS ORDERED: Vancomycin Dose by Levels Sliding Scale (Wt 71-99) FS SCH (14:30)
[2024-11-07] MEDS: Linezolid 600 MG TAB PO SCH ×2 (15:45→22:42)
[2024-11-07] MEDS: Vancomycin 1.5 GM / NS 500ML VIAL-2-BAG IVPB SCH (15:46)
[2024-11-08 04:39] LABS: Hematocrit 28.6 % (36.0-47.0); Hemoglobin 9.0 g/dL (12.0-16.0); Mean Corpuscular Hemoglobin 30.4 pg (27.0-31.0); Mean Corpuscular Volume 96.6 fL (78.0-98.0); Platelet Count 233 10x3/uL (130-400); Red Blood Cell (RBC) Count 2.96 mill/uL (4.20-5.40); White Blood Cell (WBC) Count 13.39 10x3/uL (4.8-10.8)
[2024-11-08 04:50] LABS: Anion Gap 18 mmol/L (10-20); BUN (Urea Nitrogen) 35 mg/dL (9.8-20.1); Calc. Creatinine Clearance 41 mL/min (70-130); Calcium 8.7 mg/dL (7.8-10.44); Carbon Dioxide 22 mmol/L (23-31); Chloride 109 mmol/L (98-107); Glucose 129 mg/dL (80-115); Potassium 3.9 mmol/L (3.5-5.1); Sodium 145 mmol/L (136-145)
[2024-11-08 05:32] LABS: Anisocytosis SLIGHT = 6-15 cells HPF (0-5); Nucleated RBC (Manual Ct) 37 % (0); Platelet Adequacy Comment Platelets Normal; Polychromasia SLIGHT = 2-3 cells HPF (0-2); Smudge Cells 9.6 %
[2024-11-08 14:39] LABS: Vancomycin, Trough 15.9 ug/mL
[2024-11-08] MEDS: Fluconazole In NaCl,Iso-Osm 400 MG in Premix 1 BAG IVPB SCH (17:19)
[2024-11-09 04:51] LABS: Hematocrit 24.8 % (36.0-47.0); Hemoglobin 8.1 g/dL (12.0-16.0); Mean Corpuscular Hemoglobin 31.5 pg (27.0-31.0); Mean Corpuscular Volume 96.5 fL (78.0-98.0); Platelet Count 231 10x3/uL (130-400); Red Blood Cell (RBC) Count 2.57 mill/uL (4.20-5.40); White Blood Cell (WBC) Count 13.84 10x3/uL (4.8-10.8)
[2024-11-09 05:06] LABS: Anion Gap 14 mmol/L (10-20); BUN (Urea Nitrogen) 38 mg/dL (9.8-20.1); Calc. Creatinine Clearance 36 mL/min (70-130); Calcium 8.3 mg/dL (7.8-10.44); Carbon Dioxide 22 mmol/L (23-31); Chloride 109 mmol/L (98-107); Glucose 116 mg/dL (80-115); Potassium 3.7 mmol/L (3.5-5.1); Sodium 141 mmol/L (136-145)
[2024-11-09 05:20] LABS: Anisocytosis SLIGHT = 6-15 cells HPF (0-5); Macrocytosis SLIGHT = 6-15 cells HPF (0-5); Nucleated RBC (Manual Ct) 37 % (0); Platelet Adequacy Comment Platelets Normal; Polychromasia SLIGHT = 2-3 cells HPF (0-2); Smudge Cells 11.9 %
[2024-11-09] MEDS: Hydrocortisone Sod Succ/PF 100 mg/2 ml Vial IVP SCH (10:45)
[2024-11-09] MEDS ORDERED: Iopamidol 370 76% 100 ML VIAL ONE (13:06)
[2024-11-09] MEDS: Fluconazole In NaCl,Iso-Osm 200 MG in Premix 1 BAG IVPB SCH (15:13)
[2024-11-10 04:18] LABS: Hematocrit 27.2 % (36.0-47.0); Hemoglobin 8.5 g/dL (12.0-16.0); Mean Corpuscular Hemoglobin 30.7 pg (27.0-31.0); Mean Corpuscular Volume 98.2 fL (78.0-98.0); Platelet Count 248 10x3/uL (130-400); Red Blood Cell (RBC) Count 2.77 mill/uL (4.20-5.40); White Blood Cell (WBC) Count 14.80 10x3/uL (4.8-10.8)
[2024-11-10 04:47] LABS: Anion Gap 17 mmol/L (10-20); BUN (Urea Nitrogen) 40 mg/dL (9.8-20.1); Calc. Creatinine Clearance 38 mL/min (70-130); Calcium 9.0 mg/dL (7.8-10.44); Carbon Dioxide 23 mmol/L (23-31); Chloride 110 mmol/L (98-107); Glucose 135 mg/dL (80-115); Potassium 3.9 mmol/L (3.5-5.1); Sodium 146 mmol/L (136-145)
[2024-11-10 05:02] LABS: Anisocytosis MODERATE=16-30 cells HPF (0-5); Burr Cells SLIGHT = 2-5 cells HPF (0-1); Macrocytosis MODERATE=16-30 cells HPF (0-5); Nucleated RBC (Manual Ct) 25 % (0); Platelet Adequacy Comment Platelets Normal; Polychromasia SLIGHT = 2-3 cells HPF (0-2); Smudge Cells 15.2 %
[2024-11-10] MEDS: Metoprolol Tartrate 5 MG (5 mL) VIAL IVP SCH (08:13)
[2024-11-10] MEDS: Digoxin 0.25 MG TAB PO SCH (10:04)
[2024-11-10 18:09] LABS: Anion Gap 18 mmol/L (10-20); BUN (Urea Nitrogen) 37 mg/dL (9.8-20.1); Calc. Creatinine Clearance 42 mL/min (70-130); Calcium 8.9 mg/dL (7.8-10.44); Carbon Dioxide 24 mmol/L (23-31); Chloride 108 mmol/L (98-107); Glucose 152 mg/dL (80-115); Potassium 4.0 mmol/L (3.5-5.1); Sodium 146 mmol/L (136-145)
[2024-11-10] MEDS: Insulin Glargine 30 UNITS/0.3 ML VIAL SC SCH (19:59)
[2024-11-11 04:34] LABS: Hematocrit 27.1 % (36.0-47.0); Hemoglobin 8.4 g/dL (12.0-16.0); Mean Corpuscular Hemoglobin 30.9 pg (27.0-31.0); Mean Corpuscular Volume 99.6 fL (78.0-98.0); Platelet Count 261 10x3/uL (130-400); Red Blood Cell (RBC) Count 2.72 mill/uL (4.20-5.40); White Blood Cell (WBC) Count 12.77 10x3/uL (4.8-10.8)
[2024-11-11 05:02] LABS: Anion Gap 14 mmol/L (10-20); BUN (Urea Nitrogen) 34 mg/dL (9.8-20.1); Calc. Creatinine Clearance 49 mL/min (70-130); Calcium 8.7 mg/dL (7.8-10.44); Carbon Dioxide 22 mmol/L (23-31); Chloride 111 mmol/L (98-107); Glucose 114 mg/dL (80-115); Potassium 3.8 mmol/L (3.5-5.1); Sodium 143 mmol/L (136-145)
[2024-11-11 05:27] LABS: Macrocytosis SLIGHT = 6-15 cells HPF (0-5); Nucleated RBC (Manual Ct) 38 % (0); Platelet Adequacy Comment Platelets Normal; Polychromasia SLIGHT = 2-3 cells HPF (0-2); Smudge Cells 8.8 %
[2024-11-11] MEDS: Metoprolol Tartrate 5 MG (5 mL) VIAL IVP SCH (11:24)
[2024-11-11] MEDS ORDERED: hydrALAZINE 20 MG/ML VIAL SLOW IVP PRN (18:20)
[2024-11-12 05:41] LABS: Hematocrit 25.5 % (36.0-47.0); Hemoglobin 8.1 g/dL (12.0-16.0); Mean Corpuscular Hemoglobin 31.5 pg (27.0-31.0); Mean Corpuscular Volume 99.2 fL (78.0-98.0); Platelet Count 280 10x3/uL (130-400); Red Blood Cell (RBC) Count 2.57 mill/uL (4.20-5.40); White Blood Cell (WBC) Count 10.58 10x3/uL (4.8-10.8)
[2024-11-12 05:47] LABS: Anion Gap 17 mmol/L (10-20); BUN (Urea Nitrogen) 25 mg/dL (9.8-20.1); Calc. Creatinine Clearance 60 mL/min (70-130); Calcium 8.8 mg/dL (7.8-10.44); Carbon Dioxide 23 mmol/L (23-31); Chloride 109 mmol/L (98-107); Glucose 82 mg/dL (80-115); Magnesium 1.7 mg/dL (1.6-2.6); Potassium 3.6 mmol/L (3.5-5.1); Sodium 145 mmol/L (136-145)
[2024-11-12 07:16] LABS: Anisocytosis MODERATE=16-30 cells HPF (0-5); Burr Cells SLIGHT = 2-5 cells HPF (0-1); Nucleated RBC (Manual Ct) 32 % (0); Platelet Adequacy Comment Platelets Normal; Poikilocytosis MODERATE=16-30 cells HPF (0-5); Polychromasia MODERATE = 3-4 cells HPF (0-2); Schistocytes SLIGHT = 2-5 cells HPF (0-1); Smudge Cells 15.8 %
[2024-11-12] MEDS: Digoxin 0.125 MG TAB PO SCH (10:17)
[2024-11-12 14:59] VITALS: BMI 25.8
[2024-11-13 05:00] LABS: Hematocrit 28.8 % (36.0-47.0); Hemoglobin 9.1 g/dL (12.0-16.0); Mean Corpuscular Hemoglobin 31.7 pg (27.0-31.0); Mean Corpuscular Volume 100.3 fL (78.0-98.0); Platelet Count 307 10x3/uL (130-400); Red Blood Cell (RBC) Count 2.87 mill/uL (4.20-5.40); White Blood Cell (WBC) Count 9.23 10x3/uL (4.8-10.8)
[2024-11-13 05:18] LABS: Anion Gap 13 mmol/L (10-20); BUN (Urea Nitrogen) 14 mg/dL (9.8-20.1); Calc. Creatinine Clearance 75 mL/min (70-130); Calcium 8.9 mg/dL (7.8-10.44); Carbon Dioxide 26 mmol/L (23-31); Chloride 106 mmol/L (98-107); Glucose 79 mg/dL (80-115); Potassium 3.3 mmol/L (3.5-5.1); Sodium 142 mmol/L (136-145)
[2024-11-13 05:35] LABS: Anisocytosis MODERATE=16-30 cells HPF (0-5); Nucleated RBC (Manual Ct) 9 % (0); Platelet Adequacy Comment Platelets Normal; Polychromasia MARKED = >4 cells HPF (0-2); Schistocytes SLIGHT = 2-5 cells HPF (0-1)
[2024-11-13 12:14] VITALS: TEMP 98
[2024-11-13 16:29] VITALS: BP 156/106
== END 2024-11-13 16:57 | DRG 871 ==
LOC: ERS 18:14 → OBSVTOIN 21:46 → OBS 21:46 → 2NO 11-02 20:25
PROVIDERS: ADMIT Internal Medicine; ATTEND Emergency Medicine
DX: A41.9 Sepsis, unspecified organism (principal); G93.41 Metabolic encephalopathy; J96.00 Acute respiratory failure, unspecified whether with hypoxia or hypercapnia; I13.0 Hypertensive heart and chronic kidney disease with heart failure and stage 1 through stage 4 chronic kidney disease, or unspecified chronic kidney disease; I50.22 Chronic systolic (congestive) heart failure; N17.9 Acute kidney failure, unspecified; E87.20 Acidosis, unspecified; E87.0 Hyperosmolality and hypernatremia; E87.1 Hypo-osmolality and hyponatremia; F05 Delirium due to known physiological condition; B37.49 Other urogenital candidiasis; I42.0 Dilated cardiomyopathy; F03.93 Unspecified dementia, unspecified severity, with mood disturbance; M10.9 Gout, unspecified; J45.909 Unspecified asthma, uncomplicated; E83.42 Hypomagnesemia; E87.6 Hypokalemia; N18.30 Chronic kidney disease, stage 3 unspecified; E86.0 Dehydration; E11.65 Type 2 diabetes mellitus with hyperglycemia; E11.22 Type 2 diabetes mellitus with diabetic chronic kidney disease; I48.0 Paroxysmal atrial fibrillation; F10.90 Alcohol use, unspecified, uncomplicated; F17.210 Nicotine dependence, cigarettes, uncomplicated; Z98.890 Other specified postprocedural states; Z79.899 Other long term (current) drug therapy; Z79.51 Long term (current) use of inhaled steroids; Z79.01 Long term (current) use of anticoagulants; Z79.82 Long term (current) use of aspirin; Z79.84 Long term (current) use of oral hypoglycemic drugs; R19.7 Diarrhea, unspecified; R11.2 Nausea with vomiting, unspecified; H54.61 Unqualified visual loss, right eye, normal vision left eye; Z86.718 Personal history of other venous thrombosis and embolism; R00.1 Bradycardia, unspecified; M62.838 Other muscle spasm; K14.8 Other diseases of tongue
CPT/HCPCS: 36415; 36416; 70450; 70487; 71045; 74176; 80048; 80053; 80162; 80164; 80202; 81001; 81003; 81015; 82088; 82533; 82805; 83036; 83605; 83690; 83735; 83880; 84100; 84132; 84145; 84244; 85025; 87040; 87077; 87086; 87149; 87505; 93005; 94760; 96361; 96365; J0696; J1450; J1720; J1815; J2185; J2405; J2543; J3475; J3480; J7030; J7070; Q9967